=== PATIENT | female | born 2000 | race African-American/Black ===

== ENCOUNTER 2020-07-15 20:44 | Emergency (ER) | payer OTHER, SELFPAY ==
--- NOTE | ~2020-07-15 | CT_ITS ---
EXAMINATION: CT abdomen pelvis w con DATE: 07/15/2020 22:22 INDICATION: Left lower quadrant abdominal pain TECHNIQUE: Computed tomography (CT) of the abdomen and pelvis was performed with 100 mL Omnipaque-350 intravenous contrast. Automated exposure control and iterative reconstruction technique were employe d. The dose-length product was 248.79 mGy-cm. COMPARISON: 07/29/2019 FINDINGS: Lung bases are clear. Heart size is normal. No pericardial or pleural effusion. Liver, gallbladder, s pleen, pancreas, bilateral adrenal glands and kidneys are normal. Normal appendix. Bladder and anteve rted uterus are normal. Bilateral adnexa are unremarkable although assessment is somewhat limited by small amount of likely physiologic free fluid in the pelvis. No bowel obstruction. There appears to b e some wall thickening of the colon most prominent in the region of the splenic flexure and at the re ctum and distal sigmoid colon. No abscess or free intraperitoneal gas. No pathologically enlarged abd ominal or pelvic lymphadenopathy. Bones are unremarkable. IMPRESSION: 1. Mild colonic wall thickening at the splenic flexure of the colon and distal sigmoid colon and rect um suspicious for colitis which could be infectious, inflammatory or less likely ischemic in etiology . Reviewed, dictated and finalized at location A. STIGATIVE REPORTER IMPRESSION: 1. Mild colonic wall thickening at the splenic flexure of the colon and distal sigmoid colon and rectum suspicious for colitis which could be infectious, infl ammatory or less likely ischemic in etiology.
[2020-07-15 20:52] VITALS: BP 148/86; PULSE 103; RESP 15; TEMP 36.1; O2SAT 100
[2020-07-15 21:15] LABS: Basophils Percent Auto 0.2 % (0.2-1.2); Eosinophils Absolute Auto 0.1 K/mm3 (0-0.3); Eosinophils Percent Auto 1.3 % (0-4.4); Hematocrit 37.4 % (37.0-47.0); Hemoglobin 12.1 g/dL (12.0-15.0); Immature Granulocyte Absolute 0.02 K/mm3 (0.00-0.031); Immature Granulocyte Percent A 0.2 % (0-0.5); Lymphocytes Absolute Auto 1.97 K/mm3 (0.9-3.2); Lymphocytes Percent Auto 19.6 % (18.3-44.2); Mean Corpuscular HGB Conc 32.4 g/dl (32-36); Mean Corpuscular Hemoglobin 27.4 pg (26-34); Mean Corpuscular Volume 84.8 fl (80-100); Mean Platelet Volume 9.4 fl (7.4-10.4); Monocytes Absolute Auto 0.6 K/mm3 (0.1-0.6); Monocytes Percent Auto 6.2 % (2.6-8.5); Neutrophils Absolute Auto 7.3 K/mm3 (1.3-6.7); Neutrophils Percent Auto 72.5 % (45.5-73.1); Platelet Count Result 313 k/mm3 (150-375); Red Blood Count 4.41 M/mm3 (4.2-5.4); Red Cell Distribution Width 13.7 % (11.5-14.5); White Blood Count 10.1 K/mm3 (4.5-10.0)
[2020-07-15 21:20] LABS: Add Urine Microscopic? YES; Amorphous Sediment Urine Few; Appearance Urine Cloudy (Clear); Bilirubin Urine Negative (Negative); Blood Urine Negative (Negative); Color Urine Yellow (Yellow); Glucose Urine UA Negative (Negative); Ketones Urine Negative (Negative); Leukocyte Esterase Ur Negative LEU/UL (Negative); Mucus Urine Moderate /lpf; Nitrate Urine Negative (Negative); Protein Urine 1+ mg/dL (Negative); RBC Urine 0-2 /hpf (0-2); Specific Grav Ur 1.028 (1.001-1.035); Squamous Epithelial Cell Urine Few /hpf (Few); Urobilinogen Urine Negative mg/dL (<2.0); WBC Urine 0-3 /hpf
--- NOTE | 2020-07-15 21:23 | ED.ABDPAIN ---
HPI - Abdominal Pain General Chief Complaint: Abdominal Pain Stated Complaint: LLQ pain, headache Time Seen by Provider: 07/15/20 21:19 Source: patient History of Present Illness HPI narrative: Patient is a 19 y/o female complaining of sharp left lower abdominal pain starting 2 days ago. There is no pain radiation, no alleviating or exacerbating factor. She has some nausea, but no vomiting, diarrhea or dysuria. She also started to have bilateral frontal headache with light sensitivity today. Related Data Allergies Allergy/AdvReac Type Severity Reaction Status Date / Time Penicillins Allergy Unknown Unknown Verified 07/15/20 20:54 Review of Systems Constitutional: Constitutional: Denies chills, Denies fever(s), Reports headache(s) and Denies weakness Eyes: Eyes: Denies blurry vision ENT: Reports headache(s) and Denies neck pain Cardiovascular: Cardiovascular: Denies chest pain and Denies dyspnea Respiratory: Respiratory: Denies cough and Denies dyspnea Gastrointestinal: Gastrointestinal: Reports abdominal pain, Denies diarrhea, Reports nausea and Denies vomiting Genitourinary: Genitourinary: Denies hematuria and Denies dysuria Musculoskeletal: Musculoskeletal: Denies back pain and Denies neck pain Neurologic: Reports headache(s) and Denies weakness PMFSH Past Medical History Medical History (Updated 07/15/20 @ 22:59 by Nathaly Lea MD) Asthma Bronchitis Surgical History Surgical History [place] teeth removed Family History Family History Mother Diabetes mellitus Social History Social History Smoking status: Never smoker Second hand tobacco smoke exposure: No Alcohol intake: never Gender identity (if verbalized by the patient): Female Exam Const: General: no acute distress and well developed Orientation/consciousness: oriented to person, oriented to place, oriented to time and patient oriented x3 HENMT: Head: normocephalic Ears: external ears normal General nose exam: Normal external nose present Eyes: General: appearance normal, both eyes and all related structures Conjunctivae: conjunctivae normal Neck: Neck: normal visual inspection and full ROM Chest: Chest palpation & inspection: normal inspection of the chest and no tenderness Resp: Effort & Inspection: normal respiratory effort Auscultation: clear to auscultation bilaterally Cardio: Rate: regular rate Rhythm: regular rhythm GI: GI Palp: No abdominal tenderness and Yes Soft to palpation Skin: General skin exam: normal color and turgor normal Neuro: General: oriented to person, oriented to place, oriented to time and patient oriented x3 Cranial nerves: Yes CN's II-XII intact bilaterally Cognition (Neuro): normal cognition Speech: normal speech Motor exam (neuro): 5/5 motor strength present throughout Sensory Exam: normal sensation Coordination: [id number] test normal and [id number]-[id number] test normal Extrem: General: normal to inspection, full ROM and no pedal edema Psych: Appearance: grossly normal Mental Status: mental status grossly normal Affect: normal affect Course Reevaluation(s) Reevaluation #1: Rechecked. Patient feels better with no significant pain. Date: 07/15/20 Time: 22:50 Vital Signs Vital signs: Vital Signs Temperature 36.1 C L 07/15/20 20:52 Pulse Rate 103 H 07/15/20 20:52 Respiratory Rate 15 07/15/20 20:52 Blood Pressure 148/86 H 07/15/20 20:52 Pulse Oximetry 100 07/15/20 20:52 Temperature 36.1 C L 07/15/20 20:52 Pulse Rate 90 07/15/20 22:47 Respiratory Rate 18 07/15/20 22:47 Blood Pressure 118/82 07/15/20 22:47 Pulse Oximetry 100 07/15/20 22:47 MDM - Abdominal Pain Lab Data Result diagrams: 07/15/20 21:08 07/15/20 21:08 Labs: Lab Results 07/15/20 07/15/20
[2020-07-15 21:30] LABS: Alanine Aminotransferase 14 U/L (4-35); Albumin Level 4.9 g/dL (3.7-5.6); Alkaline Phosphatase 93 U/L (45-116); Anion Gap 10 mmol/L (8-16); Aspartate Amino Transferase 28 U/L (14-36); Bilirubin,Total 0.3 mg/dL (0.2-1.3); Blood Urea Nitrogen 10 mg/dL (8-21); Carbon Dioxide 27 mmol/L (22-30); Chloride 104 mmol/L (98-107); Estimated CRCL calculation 99 ml/min; Estimated Glomerular Filt Rate > 60; Glucose 99 mg/dL (65-105); Lipase 71 U/L (23-300); Potassium 3.3 mmol/L (3.4-5.0); Sodium 141 mmol/L (134-143)
[2020-07-15] MEDS: SODIUM CHLORIDE 0.9% IV 1,000 ML 999 ML IV CONT (21:50)
[2020-07-15] MEDS: KETOROLAC 30 MG/ML VIAL (*BKC) IV PUSH (21:51)
[2020-07-15] MEDS: METOCLOPRAMIDE HCL INJ 10 MG/2 ML VIAL IV PUSH (21:51)
[2020-07-15] MEDS: diphenhydrAMINE HCl INJ 50 MG/ML VIAL 25 MG IV PUSH (21:51)
[2020-07-15] MEDS: POTASSIUM CHLORIDE 20 MEQ TABLET PO (22:44)
[2020-07-15 22:47] VITALS: BP 118/82; PULSE 90; RESP 18; O2SAT 100
[2020-07-15 23:15] VITALS: BP 122/80; PULSE 87; RESP 18; O2SAT 100
== END 2020-07-15 23:30 | disposition home or self-care (01) ==
PROVIDERS: Emergency Medicine; Emergency Provider Emergency Medicine; PCP Pediatrics
DX: R51.9 Headache, unspecified (principal); J45.909 Unspecified asthma, uncomplicated
CPT/HCPCS: 36415; 74177; 80053; 81001; 81025; 83690; 85025; 96361; 96374; 96375; 99284; A9270; J1200; J1885; J2765; J7030; Q9967

== ENCOUNTER 2021-03-22 17:00 | Emergency (ER) | payer OTHER, SELFPAY ==
[2021-03-22 17:43] VITALS: BP 127/81; PULSE 96; RESP 15; TEMP 36.3; O2SAT 100
[2021-03-22 18:00] LABS: Basophils Percent Auto 0.2 % (0.2-1.2); Eosinophils Percent Auto 0.5 % (0-4.4); Hematocrit 37.5 % (37.0-47.0); Lymphocytes Absolute Auto 0.81 K/mm3 (0.9-3.2); Lymphocytes Percent Auto 18.3 % (18.3-44.2); Mean Corpuscular Hemoglobin 26.9 pg (26-34); Mean Corpuscular Volume 84.1 fl (80-100); Mean Platelet Volume 10.1 fl (7.4-10.4); Monocytes Absolute Auto 0.6 K/mm3 (0.1-0.6); Monocytes Percent Auto 12.7 % (2.6-8.5); Neutrophils Percent Auto 68.3 % (45.5-73.1); Platelet Count Result 294 k/mm3 (150-375); Red Blood Count 4.46 M/mm3 (4.2-5.4); Red Cell Distribution Width 13.5 % (11.5-14.5); White Blood Count 4.4 K/mm3 (4.5-10.0)
[2021-03-22 18:10] LABS: Alanine Aminotransferase 14 U/L (4-35); Albumin Level 4.5 g/dL (3.5-5.1); Alkaline Phosphatase 82 U/L (38-126); Anion Gap 9 mmol/L (8-16); Aspartate Amino Transferase 25 U/L (14-36); Bilirubin,Total 0.4 mg/dL (0.2-1.3); Blood Urea Nitrogen 7 mg/dL (7-17); Calcium 9.2 mg/dL (8.4-10.2); Carbon Dioxide 24 mmol/L (22-30); Chloride 101 mmol/L (98-107); Estimated CRCL calculation 111 ml/min; Estimated Glomerular Filt Rate > 60; Glucose 106 mg/dL (65-110); Lipase 78 U/L (23-300); Potassium 3.1 mmol/L (3.4-5.0); Sodium 134 mmol/L (137-145)
[2021-03-22 18:11] LABS: Add Urine Microscopic? YES; Appearance Urine Cloudy (Clear); Bilirubin Urine 1+ (Negative); Blood Urine Negative (Negative); Color Urine Amber (Yellow); Glucose Urine UA Negative (Negative); Ketones Urine 2+ mg/dL (Negative); Leukocyte Esterase Ur Negative LEU/UL (Negative); Mucus Urine Heavy /lpf; Nitrate Urine Negative (Negative); Protein Urine 2+ mg/dL (Negative); RBC Urine 0-2 /hpf (0-2); Squamous Epithelial Cell Urine Many /hpf (Few); WBC Urine 0-3 /hpf
[2021-03-22 18:26] LABS: Specific Grav Ur 1.049 (1.001-1.035)
[2021-03-22 19:23] VITALS: BP 121/84; PULSE 84; RESP 18; O2SAT 100
--- NOTE | 2021-03-22 19:37 | ED.GENADULT ---
HPI - General Adult General Chief complaint: Nausea/Vomiting/Diarrhea Stated complaint: N/V/D Time Seen by Provider: 03/22/21 19:17 Source: patient Mode of arrival: ambulatory Limitations: no limitations History of Present Illness HPI narrative: Patient is 20 years old -Congolese female referred to the emergency room by urgent care because of abnormal urine test. Patient complaining of headache started 2 days ago, today felt nauseated, vomited once and had large bowel movement of watery diarrhea. Patient denies any fever, chills, sneezing, coughing, sore throat, respiratory symptoms, exposure to anybody known having COVID-19. 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 EYES: Denies visual changes, redness, or discharge. ENT: Denies rhinorrhea, congestion, sore throat, or otalgia. CARDIOVASCULAR: Denies chest pain, palpitations, or edema. RESPIRATORY: Denies cough or dyspnea. GASTROINTESTINAL: Denies abdominal pain, nausea, vomiting, or diarrhea. GENITOURINARY: Denies dysuria or hematuria. SKIN: Denies rash or itching. MUSCULOSKELETAL: Denies back pain, joint pain, or myalgia. NEUROLOGIC: Slight frontal headache PSYCHIATRIC: Denies anxiety or depression. PMFSH Past Medical History Medical History (Updated 03/22/21 @ 19:46 by George Bay MD) Asthma Bronchitis Surgical History Surgical History [place] teeth removed Family History Family History Mother Diabetes mellitus Social History Social History Smoking status: Never smoker Second hand tobacco smoke exposure: No Alcohol intake: never Gender identity (if verbalized by the patient): Female Exam Narrative: General appearance: Well-developed, well-nourished Skin: Normal color Head: Normocephalic, nontraumatic Eyes: Clear conjunctiva ENT: Oropharynx normal, ears normal, nose normal Neck: Supple, nontender Chest and respiratory: Airway patent, no respiratory distress, no accessory muscle use Heart: Regular rate/rhythm Abdomen: Soft, nontender, no organomegaly, quiet bowel sounds Vascular: Normal peripheral pulses, normal capillary refill. Musculoskeletal: Normal range of motion, nontender back Neurologic: Alert and oriented ?3, LITERACY COORDINATOR is normal as tested, no gross motor deficit Course Course Emergency Course: Stable, improving Vital Signs Vital signs: Vital Signs Temperature 36.3 C L 03/22/21 17:43 Pulse Rate 96 03/22/21 17:43 Respiratory Rate 15 03/22/21 17:43 Blood Pressure 127/81 03/22/21 17:43 Pulse Oximetry 100 03/22/21 17:43 Temperature 36.3 C L 03/22/21 17:43 Pulse Rate 84 03/22/21 19:23 Respiratory Rate 18 03/22/21 19:23 Blood Pressure 121/84 03/22/21 19:23 Pulse Oximetry 100 03/22/21 19:23 Medical Decision Making [facility] Narrative Medical decision making narrative: Viral gastroenteritis is my concern. Rule out Covid, Rule out electrolyte imbalance. Labs, IV fluid, IV Toradol ordered. Further plan to follow Differential Diagnosis Differential Diagnosis: Viral infection, gastroenteritis, electrolyte imbalance Vital Signs Vital Signs: Vital Signs Temperature 36.3 C L 03/22/21 17:43 Pulse Rate 96 03/22/21 17:43 Respiratory Rate 15 03/22/21 17:43 Blood Pressure 127/81 03/22/21 17:43 Pulse Oximetry 100
[2021-03-22] MEDS: POTASSIUM CHLORIDE 20 MEQ PACKET (FOR LIQUID) 40 MEQ PO (19:39)
[2021-03-22 20:00] VITALS: BP 129/86; PULSE 88; RESP 14; O2SAT 100
[2021-03-22] MEDS: KETOROLAC 30 MG/ML VIAL (*BKC) IV PUSH (20:02)
[2021-03-22] MEDS: SODIUM CHLORIDE 0.9% IV 1,000 ML 999 ML IV CONT (20:02)
[2021-03-22 21:00] VITALS: BP 104/69; PULSE 81; RESP 14; O2SAT 100
[2021-03-22 22:00] VITALS: BP 111/73; PULSE 91; RESP 14; O2SAT 100
[2021-03-23 17:38] LABS: SARS-CoV-2 RNA PCR Negative
== END 2021-03-22 22:00 | disposition home or self-care (01) ==
LOC: ANHED 19:56
PROVIDERS: Emergency Medicine; Emergency Provider Emergency Medicine
DX: J45.909 Unspecified asthma, uncomplicated (principal); A08.4 Viral intestinal infection, unspecified; R82.2 Biliuria; E87.6 Hypokalemia; R80.9 Proteinuria, unspecified; Z20.822 Contact with and (suspected) exposure to COVID-19
CPT/HCPCS: 36415; 80053; 81001; 83690; 85025; 96361; 96374; 99284; A9270; C9803; J1885; J7030; U0003; U0005

== ENCOUNTER 2022-04-13 16:35 | Emergency (ER) | payer OTHER, SELFPAY ==
[2022-04-13 16:40] VITALS: BP 148/82; PULSE 100; RESP 20; TEMP 36.4; O2SAT 100
[2022-04-13 17:07] LABS: Basophils Percent Auto 0.3 % (0.2-1.2); Eosinophils Absolute Auto 0.2 K/mm3 (0-0.3); Eosinophils Percent Auto 3.2 % (0-4.4); Hematocrit 35.5 % (37.0-47.0); Hemoglobin 11.8 g/dL (12.0-15.0); Immature Granulocyte Absolute 0.02 K/mm3 (0.00-0.031); Immature Granulocyte Percent A 0.3 % (0-0.5); Lymphocytes Absolute Auto 2.43 K/mm3 (0.9-3.2); Lymphocytes Percent Auto 32.5 % (18.3-44.2); Mean Corpuscular HGB Conc 33.2 g/dl (32-36); Mean Corpuscular Hemoglobin 27.8 pg (26-34); Mean Corpuscular Volume 83.7 fl (80-100); Mean Platelet Volume 9.6 fl (7.4-10.4); Monocytes Absolute Auto 0.7 K/mm3 (0.1-0.6); Monocytes Percent Auto 8.7 % (2.6-8.5); Neutrophils Absolute Auto 4.1 K/mm3 (1.3-6.7); Platelet Count Result 316 k/mm3 (150-375); Red Blood Count 4.24 M/mm3 (4.2-5.4); White Blood Count 7.5 K/mm3 (4.5-10.0)
[2022-04-13 17:12] LABS: Appearance Urine Clear (Clear); Bilirubin Urine Negative (Negative); Blood Urine Negative (Negative); Color Urine Yellow (Yellow); Glucose Urine UA Negative (Negative); Ketones Urine Trace mg/dL (Negative); Leukocyte Esterase Ur Negative LEU/UL (Negative); Nitrate Urine Negative (Negative); Protein Urine Trace mg/dL (Negative); Urobilinogen Urine 0.2 mg/dL (<2.0); pH Urine 8.5 (5.0-9.0)
[2022-04-13 17:16] LABS: Alanine Aminotransferase 10 U/L (6-35); Albumin Level 4.9 g/dL (3.5-5.1); Alkaline Phosphatase 70 U/L (38-126); Anion Gap 5 mmol/L (8-16); Aspartate Amino Transferase 25 U/L (14-36); Bilirubin,Total 0.2 mg/dL (0.2-1.3); Blood Urea Nitrogen 5 mg/dL (7-17); Calcium 9.6 mg/dL (8.4-10.2); Carbon Dioxide 23 mmol/L (22-30); Chloride 103 mmol/L (98-107); Estimated CRCL calculation 127 ml/min; Estimated Glomerular Filt Rate > 60; Glucose 97 mg/dL (65-110); Lipase 105 U/L (23-300); Potassium 3.8 mmol/L (3.4-5.0); Sodium 131 mmol/L (137-145)
[2022-04-13 17:18] LABS: Mucus Urine Heavy /lpf; Squamous Epithelial Cell Urine Many /hpf (Few)
[2022-04-13 17:25] LABS: Add Urine Microscopic? YES
[2022-04-13] MEDS: SODIUM CHLORIDE 0.9% IV 1,000 ML 999 ML IV CONT (18:10)
--- NOTE | 2022-04-13 18:12 | ED.NAVMDI ---
HPI - Nausea/Vomiting/Diarrhea General Chief complaint: Nausea/Vomiting/Diarrhea Stated complaint: N/V/D Time Seen by Provider: 04/13/22 17:55 Source: patient Mode of arrival: ambulatory Limitations: no limitations History of Present Illness HPI Narrative: Patient is a 21-year-old female who presents the ED with report of N/V/D. Patient reports she began to feel somewhat well last night, but then developed nausea, vomiting, diarrhea today. She is currently 9 weeks , G1, P0, and became concerned due to the that she was unable to keep down any food or fluid. She reports having 4 episodes of emesis and numerous episodes of diarrhea. No rectal bleeding. Abdominal cramping abdominal pain, no localized or lower abdominal pain. No hematemesis. No fever, cough, cold symptoms, recent sick contacts or bad food exposure, dysuria, hematuria, vaginal bleeding. Patient has had an ultrasound within the last month, confirming IUP. She sees an CODING SUPPORT SPECIALIST in [place]. Next appointment and [place] mid-April. Related Data Allergies Allergy/AdvReac Type Severity Reaction Status Date / Time Penicillins Allergy Unknown Unknown Verified 03/22/21 19:24 peanut Allergy Unknown Verified 03/22/21 19:24 Review of Systems Review of Systems: CONSTITUTIONAL: Denies fever, chills, or sweats. ENT: Denies rhinorrhea, congestion, sore throat. CARDIOVASCULAR: Denies chest pain. RESPIRATORY: Denies cough or dyspnea. GASTROINTESTINAL: Reports dull cramping abdominal pain, nausea, vomiting, and diarrhea. Denies focal abdominal pain, constipation, rectal bleeding. GENITOURINARY: Denies dysuria or hematuria. All systems reviewed & are unremarkable except as noted in HPI and below PMFSH Past Medical History Medical History (Updated 04/13/22 @ 20:11 by Laisha Gross PA-C) Asthma Bronchitis Surgical History Surgical History [place] teeth removed Family History Family History Mother Diabetes mellitus Social History Social History Smoking status: Never smoker Second hand tobacco smoke exposure: No Alcohol intake: never Gender identity (if verbalized by the patient): Female Exam Narrative: GENERAL: Well appearing, well-nourished, non-toxic, in no acute distress. HEAD: Normocephalic, atraumatic. THROAT: Pharynx clear, no exudate. MMs slightly dry. NECK: Supple. No adenopathy, no masses. RESPIRATORY: Airway patent, respirations nonlabored. Clear to auscultation bilaterally, no rales, rhonchi, wheezing. CARDIOVASCULAR: Regular rate and rhythm without murmurs, rubs, or gallops. Radial and pedal pulses 2+ and equal bilaterally. ABDOMINAL: Soft, minimal tenderness palpation epigastric region, no tenderness in lower abdomen. Unable to definitively palpate gravid uterus. Nondistended, no hepatosplenomegaly. Normoactive BS. MUSCULOSKELETAL: Moves all extremities. Strength/ROM intact without gross deformities. No edema. SKIN: Warm, dry, normal color. No rashes. NEURO: A&O X3. Speech clear. Cranial nerves II-XII grossly intact. Steady gait. No ataxic movements. PSYCHIATRIC: Appropriate mood and affect. Normal interaction. Course Vital Signs Vital signs: Vital Signs Temperature 97.6 F 04/13/22 16:40 Pulse Rate 100 04/13/22 16:40 Respiratory Rate 20 04/13/22 16:40 Blood Pressure 148/82 H 04/13/22 16:40 Pulse Oximetry 100 04/13/22 16:40 Oxygen Delivery Room Air 04/13/22 16:40 Temperature 97.6 F 04/13/22 16:40 Pulse Rate 87 04/13/22 20:28 Respiratory Rate 18 04/13/22 20:28 Blood Pressure 129/77 04/13/22 20:28 Pulse Oximetry 97 04/13/22 20:28 Oxygen Delivery Room Air 04/13/22 16:40 MDM - Nausea/Vomiting/Diarrhea MDM Narrative Medical decision making narrative: Patient presented to ED with several hour history of
[2022-04-13 18:19] VITALS: BP 116/73; BP 118/71; PULSE 80; PULSE 82
[2022-04-13 18:20] VITALS: BP 129/86; PULSE 73
[2022-04-13] MEDS: ONDANSETRON INJ 4 MG/2 ML VIAL IV PUSH (18:25)
[2022-04-13 18:44] VITALS: BP 106/67; PULSE 69; RESP 16; O2SAT 100
[2022-04-13 19:55] VITALS: BP 102/68; PULSE 76; RESP 18; O2SAT 100
[2022-04-13 20:28] VITALS: BP 129/77; PULSE 87; RESP 18; O2SAT 97
== END 2022-04-13 20:26 | disposition home or self-care (01) ==
PROVIDERS: Emergency Medicine; Emergency Provider Emergency Medicine
DX: O21.9 Vomiting of pregnancy, unspecified (principal); O26.891 Other specified pregnancy related conditions, first trimester; R82.71 Bacteriuria; Z3A.09 9 weeks gestation of pregnancy
CPT/HCPCS: 36415; 80053; 81001; 81025; 83690; 85025; 87086; 96361; 96374; 99284; J2405; J7030

== ENCOUNTER 2023-11-05 21:53 | Emergency (ER) | payer OTHER, SELFPAY ==
[2023-11-05 21:55] VITALS: BP 130/84; PULSE 97; RESP 16; TEMP 36.1; O2SAT 100
[2023-11-05 22:48] LABS: Basophils Percent Auto 0.4 % (0.2-1.2); Eosinophils Absolute Auto 0.3 K/mm3 (0-0.3); Eosinophils Percent Auto 3.8 % (0-4.4); Hemoglobin 11.1 g/dL (12.0-15.0); Immature Granulocyte Absolute 0.01 K/mm3 (0.00-0.031); Immature Granulocyte Percent A 0.1 % (0-0.5); Lymphocytes Percent Auto 39.4 % (18.3-44.2); Mean Corpuscular HGB Conc 32.6 g/dl (32-36); Mean Corpuscular Hemoglobin 27.7 pg (26-34); Mean Corpuscular Volume 84.8 fl (80-100); Mean Platelet Volume 9.7 fl (7.4-10.4); Monocytes Absolute Auto 0.7 K/mm3 (0.1-0.6); Monocytes Percent Auto 8.4 % (2.6-8.5); Neutrophils Absolute Auto 3.8 K/mm3 (1.3-6.7); Neutrophils Percent Auto 47.9 % (45.5-73.1); Platelet Count Result 301 k/mm3 (150-375); Red Blood Count 4.01 M/mm3 (4.2-5.4); Red Cell Distribution Width 13.8 % (11.5-14.5); White Blood Count 7.9 K/mm3 (4.5-10.0)
[2023-11-05 22:59] LABS: Alanine Aminotransferase 11 U/L (6-35); Albumin Level 4.1 g/dL (3.5-5.1); Alkaline Phosphatase 100 U/L (38-126); Anion Gap 7 mmol/L (8-16); Aspartate Amino Transferase 21 U/L (14-36); Bilirubin,Total 0.2 mg/dL (0.2-1.3); Blood Urea Nitrogen 10 mg/dL (7-17); Calcium 9.3 mg/dL (8.4-10.2); Carbon Dioxide 20 mmol/L (22-30); Chloride 107 mmol/L (98-107); Estimated CRCL calculation 126 ml/min; Estimated Glomerular Filt Rate > 60; Glucose 116 mg/dL (65-110); Potassium 3.6 mmol/L (3.4-5.0); Sodium 134 mmol/L (137-145)
--- NOTE | 2023-11-05 23:07 | PC.NURSE ---
Report received from JAMES Alves. Assumed care of patient at this time.
--- NOTE | 2023-11-05 23:10 | ED.FEMALEGU ---
HPI - Female Genitourinary General Chief complaint: Vaginal Bleeding Stated complaint: /VAGINAL SPOTTING Time Seen by Provider: 11/05/23 22:01 History of Present Illness HPI Narrative: Patient is a 22-year-old female who presents to the emergency department this evening complaining of vaginal spotting. Patient states that she is approximately 9 weeks and this is her 2nd . Patient has seen her OBGYN during this already and has had an ultrasound confirming intrauterine . Patient denies any bleeding or spotting thus far in her . She is currently denying any abdominal pain or cramping and denies any urinary symptoms including dysuria or hematuria. Patient states that she has an upcoming appointment with her OBGYN in 4 days on the . She is currently denying any additional symptoms at this time. There are no other modifying, alleviating, or precipitating factors. Related Data Home Medications Medication Instructions Recorded Confirmed No Home Medications 11/05/23 Allergies Allergy/AdvReac Type Severity Reaction Status Date / Time Penicillins Allergy Unknown Unknown Verified 11/05/23 21:57 peanut Allergy Unknown Verified 11/05/23 21:57 Review of Systems Review of Systems: All systems are reviewed and are negative unless stated otherwise in the HPI. [facility] Past Medical History Medical History (Updated 11/05/23 @ 23:15 by Chinedu Berry MD) Asthma Bronchitis Surgical History Surgical History [place] teeth removed Family History Family History Mother Diabetes mellitus Social History Social History Smoking status: Never smoker Second hand tobacco smoke exposure: No Alcohol intake: never Gender identity (if verbalized by the patient): Female Exam Narrative: General: Alert, awake, afebrile, in no acute distress. HEENT: PERRL, no rhinorrhea, no post nasal drip, oropharynx clear. Neck: Trachea midline, no JVD, no lymphadenopathy. Cardiovascular: Regular rate and rhythm, no murmurs, rubs or gallops, no peripheral edema. Respiratory: Clear to auscultation bilaterally, no tachypnea, no wheezing, no rhonchi, no rubs, no respiratory distress. Abdomen: Soft, nontender, nondistended, no rebound, no guarding, no peritoneal signs. Musculoskeletal: No joint swelling or deformity, normal muscle tone. Skin: No rashes or petechia, no signs of infection. Psychiatric: Alert and oriented, normal behavior and judgment for situation. Neurological: Alert and oriented to person, place, and time. Follows all commands. No focal deficits, speech is clear and fluent. Course Vital Signs Vital signs: Vital Signs Temperature 97.0 F L 11/05/23 21:55 Pulse Rate 97 11/05/23 21:55 Respiratory Rate 16 11/05/23 21:55 Blood Pressure 130/84 11/05/23 21:55 Pulse Oximetry 100 11/05/23 21:55 Oxygen Delivery Room Air 11/05/23 21:55 Temperature 97.0 F L 11/05/23 21:55 Pulse Rate 88 11/06/23 00:58 Respiratory Rate 17 11/06/23 00:58 Blood Pressure 130/84 11/05/23 21:55 Pulse Oximetry 99 11/06/23 00:58 Oxygen Delivery Room Air 11/05/23 21:55 MDM - Female Genitourinary MDM Narrative Medical decision making narrative: The patient was evaluated by myself in the emergency department. History is obtained from patient who is an independent historian and physical exam was performed. External medical records were reviewed at this time. IV was established and pertinent tests were ordered. Laboratory results obtained revealing a beta-hCG of 94,710. The remainder of the blood work revealed no acute process. Patient is Rh positive. Differential diagnosis considerations include normal 1st trimester spotting versus threatened miscarriage. Comorbidities impacting
[2023-11-06 00:58] VITALS: PULSE 88; RESP 17; O2SAT 99
[2023-11-06 01:11] LABS: Bacteria Urine None Seen /hpf; Non Pathogenic Casts 0-2; RBC Urine 0-2 /hpf (0-2); Squamous Epithelial Cell Urine None Seen /hpf (Few); WBC Urine 0-5 /hpf (0-3)
[2023-11-06 01:13] LABS: Add Urine Microscopic? YES; Color Urine Yellow (Yellow)
[2023-11-06 01:14] LABS: Appearance Urine Clear (Clear); Bilirubin Urine Negative (Negative); Blood Urine Trace-Lysed (Negative); Glucose Urine UA Negative (Negative); Ketones Urine Trace mg/dL (Negative); Leukocyte Esterase Ur Negative LEU/UL (Negative); Nitrate Urine Negative (Negative); Protein Urine Negative (Negative); Specific Grav Ur 1.025 (1.001-1.035)
== END 2023-11-06 01:50 | disposition home or self-care (01) ==
PROVIDERS: Emergency Provider Emergency Medicine
DX: O20.0 Threatened abortion (principal); O99.511 Diseases of the respiratory system complicating pregnancy, first trimester; J45.909 Unspecified asthma, uncomplicated; Z3A.09 9 weeks gestation of pregnancy
CPT/HCPCS: 36415; 80053; 81001; 84702; 85025; 85461; 86850; 86900; 86901; 99283

== ENCOUNTER 2024-06-04 03:26 | Emergency (ER) | payer OTHER, SELFPAY ==
[2024-06-04] VITALS (18 sets, daily range): BP systolic 126–172; BP diastolic 82–124; PULSE 61–112; RESP 14–23; TEMP 36.4–36.7; O2SAT 98–100
--- NOTE | ~2024-06-04 | XR_ITS ---
EXAMINATION: XR chest 1V portable DATE: 06/04/2024 04:34 INDICATION: Shortness of breath. TECHNIQUE: A single frontal view of the chest was obtained. COMPARISON: Chest 2 views 07/29/2019, CT abdomen and pelvis 07/15/2020 FINDINGS: There is no pneumonia, pleural effusion, or pneumothorax. The heart size is normal. IMPRESSION: 1. No acute cardiopulmonary disease. Reviewed, dictated and finalized at location A.
--- NOTE | 2024-06-04 03:35 | PC.NURSE ---
unable to place pt in gown as she is currently breast feeding the baby.
[2024-06-04] MEDS: SODIUM CHLORIDE 0.9% IV 1,000 ML 999 ML IV CONT (03:38)
[2024-06-04 03:51] LABS: Basophils Percent Auto 0.3 % (0.2-1.2); Eosinophils Absolute Auto 0.2 K/mm3 (0-0.3); Eosinophils Percent Auto 2.3 % (0-4.4); Hematocrit 33.4 % (37.0-47.0); Hemoglobin 10.5 g/dL (12.0-15.0); Immature Granulocyte Absolute 0.02 K/mm3 (0.00-0.031); Immature Granulocyte Percent A 0.3 % (0-0.5); Lymphocytes Absolute Auto 3.74 K/mm3 (0.9-3.2); Lymphocytes Percent Auto 51.3 % (18.3-44.2); Mean Corpuscular HGB Conc 31.4 g/dl (32-36); Mean Corpuscular Hemoglobin 26.9 pg (26-34); Mean Corpuscular Volume 85.4 fl (80-100); Mean Platelet Volume 9.6 fl (7.4-10.4); Monocytes Absolute Auto 0.6 K/mm3 (0.1-0.6); Monocytes Percent Auto 8.1 % (2.6-8.5); Neutrophils Absolute Auto 2.8 K/mm3 (1.3-6.7); Neutrophils Percent Auto 37.7 % (45.5-73.1); Platelet Count Result 321 k/mm3 (150-375); Red Blood Count 3.91 M/mm3 (4.2-5.4); Red Cell Distribution Width 14.6 % (11.5-14.5); White Blood Count 7.3 K/mm3 (4.5-10.0)
[2024-06-04 04:01] LABS: Alanine Aminotransferase 17 U/L (6-35); Alkaline Phosphatase 145 U/L (38-126); Anion Gap 9 mmol/L (4-12); Aspartate Amino Transferase 24 U/L (14-36); Bilirubin,Total 0.3 mg/dL (0.2-1.3); Blood Urea Nitrogen 11 mg/dL (7-17); Calcium 8.7 mg/dL (8.4-10.2); Carbon Dioxide 22 mmol/L (22-30); Chloride 107 mmol/L (98-107); Estimated CRCL calculation 111 ml/min; Estimated Glomerular Filt Rate > 60; Glucose 76 mg/dL (65-110); Lipase 91 U/L (23-300); Magnesium 2.1 mg/dL (1.6-2.3); Potassium 3.7 mmol/L (3.4-5.0); Sodium 138 mmol/L (137-145)
[2024-06-04 04:05] LABS: Uric Acid 5.3 mg/dL (2.5-7.5)
--- NOTE | 2024-06-04 04:06 | ECG_ITS ---
Test Date: 2024-06-04 04:34:00 Measurements Intervals [place] Rate: 68 P: 43 LA: 139 QRS: 17 QRSD: 123 T: 9 QT: 418 QTc: 446 Interpretive Statements SINUS RHYTHM INCOMPLETE RIGHT BUNDLE BRANCH BLOCK No previous ECG available for comparison Electronically Signed On 06-04-2024 09:42:54 CDT by Monica Fox M.D.
[2024-06-04 04:12] LABS: SPREG INTERNAL CONTROL Positive; Serum Qual hCG Positive
[2024-06-04 04:17] LABS: Lactate Dehydrogenase 248 U/L (120-246)
--- NOTE | 2024-06-04 04:25 | ED.ABDPAIN ---
HPI - Abdominal Pain General Chief Complaint: Abdominal Pain Stated Complaint: r sided flank pain, high bp, headaches Time Seen by Provider: 06/04/24 03:32 History of Present Illness HPI narrative: Patient is a 23-year-old female who presents to the emergency department this morning with an elevated blood pressure, headaches and feeling like it is difficult for her to take a deep breath. Patient had an uncomplicated vaginal delivery 5 days ago on May 30 at [facility]. Patient states that there were a few times during her were her blood pressure was elevated but she was never placed on antihypertensives and states that she was never diagnosed with preeclampsia/eclampsia. Patient denies any significant past medical history. Admits to seeing floaters in her field of vision intermittently, and states that she feels as though she can not fully expand her lungs she takes a deep breath. She admits to nausea but denies any vomiting episodes and denies any abdominal pain. Patient also denies any dysuria or hematuria. Denies any fevers or chills. No additional symptoms or concerns at this time. Related Data Home Medications Medication Instructions Recorded Confirmed No Home Medications 11/05/23 Allergies Allergy/AdvReac Type Severity Reaction Status Date / Time Penicillins Allergy Unknown Unknown Verified 06/04/24 03:27 peanut Allergy Unknown Verified 06/04/24 03:27 Review of Systems Review of Systems: All systems are reviewed and are negative unless stated otherwise in the HPI. [facility] Past Medical History Medical History (Updated 06/04/24 @ 05:38 by Chinedu Berry MD) Asthma Bronchitis Surgical History Surgical History [place] teeth removed Family History Family History Mother Diabetes mellitus Social History Social History Smoking status: Never smoker Second hand tobacco smoke exposure: No Alcohol intake: never Gender identity (if verbalized by the patient): Female Exam Narrative: General: Alert, awake, afebrile, in no acute distress. HEENT: PERRL, no rhinorrhea, no post nasal drip, oropharynx clear. Cardiovascular: Regular rate and rhythm, no murmurs, rubs or gallops, no peripheral edema. Respiratory: Clear to auscultation bilaterally, no tachypnea, no wheezing, no rhonchi, no rubs, no respiratory distress. Abdomen: Soft, nontender, nondistended, no rebound, no guarding, no peritoneal signs. Musculoskeletal: No joint swelling or deformity, normal muscle tone. Skin: No rashes or petechia, no signs of infection. Neurological: Alert and oriented to person, place, and time. Follows all commands. No focal deficits, speech is clear and fluent. Course Vital Signs Vital signs: Vital Signs Temperature 98.1 F 06/04/24 03:29 Pulse Rate 80 06/04/24 03:29 Respiratory Rate 23 H 06/04/24 03:29 Blood Pressure 162/124 H 06/04/24 03:29 Pulse Oximetry 100 06/04/24 03:29 Oxygen Delivery Room Air 06/04/24 03:29 Temperature 98.1 F 06/04/24 03:29 Pulse Rate 112 H 06/04/24 05:45 Respiratory Rate 18 06/04/24 05:45 Blood Pressure 155/115 H 06/04/24 04:16 Pulse Oximetry 99 06/04/24 05:45 Oxygen Delivery Room Air 06/04/24 03:29 MDM - Abdominal Pain MDM Narrative Medical decision making narrative: The patient was evaluated by myself in the emergency department. History is obtained from patient who is an independent historian and physical exam was performed. External medical records were reviewed at this time. IV was established and pertinent tests were ordered. Patient was administered 4 g of IV magnesium and 10 mg of IV hydralazine at this time due to concern for preeclampsia with severe features. Patient has had 6 blood pressure readings 15 minutes apart with systolic blood press
[2024-06-04] MEDS: hydrALAZINE HCL 20 MG/ML VIAL 10 MG IV PUSH ×2 (04:28→05:31)
[2024-06-04] MEDS: MAGNESIUM SULF 4 GM/WATER100ML 4 GM/100 ML BAG IVPB (04:40)
--- NOTE | 2024-06-04 04:42 | PC.NURSE ---
Addendum entered by Elizabeth Osorio RN 06/04/24 04:43: Magnesium Original Note: RN double check with JAMES Guevara
--- NOTE | 2024-06-04 05:14 | PC.NURSE ---
Ok per Dr Berry to run the [employer] over 20 min.
--- NOTE | 2024-06-04 05:18 | PC.NURSE ---
Leyda RN start LR @ 75ml / hr Dr Mcrae accepting [place] [address], [facility] Room 533
[2024-06-04 05:24] LABS: Add Urine Microscopic? YES; Appearance Urine Clear (Clear); Bacteria Urine None Seen /hpf; Bilirubin Urine Negative (Negative); Blood Urine 1+ (Negative); Color Urine Yellow (Yellow); Glucose Urine UA Negative (Negative); Ketones Urine Negative (Negative); Leukocyte Esterase Ur 2+ LEU/UL (Negative); Need Manual Microscopic Reviewed; Nitrate Urine Negative (Negative); Non Pathogenic Casts 0-2; Protein Urine Negative (Negative); RBC Urine 0-2 /hpf (0-2); Specific Grav Ur 1.011 (1.001-1.035); Squamous Epithelial Cell Urine None Seen /hpf (Few); Urobilinogen Urine 0.2 mg/dL (<2.0); WBC Urine 0-5 /hpf (0-3); pH Urine 6.5 (5.0-9.0)
[2024-06-04] MEDS: LACTATED RINGERS 1,000 ML 75 ML IV CONT (05:49)
[2024-06-04] MEDS: MAGNESIUM SULF 2 GM/WATER 50ML 2 GM/50 ML BAG IVPB (05:49)
--- NOTE | 2024-06-04 06:26 | PC.NURSE ---
[facility] arrived with aSpphire hernandez to transport pt. [facility]apphire hernandez stopped our LR and Mag and started their own LR and mag.
== END 2024-06-04 06:29 | disposition short-term general hospital (02) ==
PROVIDERS: Emergency Provider Emergency Medicine
DX: O14.15 Severe pre-eclampsia, complicating the puerperium (principal); O99.53 Diseases of the respiratory system complicating the puerperium; J45.909 Unspecified asthma, uncomplicated; O99.43 Diseases of the circulatory system complicating the puerperium; I45.10 Unspecified right bundle-branch block
CPT/HCPCS: 36415; 71045; 80053; 81001; 83615; 83690; 83735; 84550; 84703; 85025; 87077; 87086; 87186; 93005; 96361; 96365; 96367; 96375; 99285; J0360; J3475; J7030; J7120

== ENCOUNTER 2024-07-05 13:57 | Emergency (ER) | payer OTHER, SELFPAY ==
--- NOTE | ~2024-07-05 | US_ITS ---
EXAMINATION: US venous doppler LE RT DATE: 07/05/2024 15:57 INDICATION: Right lower limb pain TECHNIQUE: Grayscale ultrasound images without and with compression and Doppler ultrasound images of the right lower extremity veins were obtained. COMPARISON: None. FINDINGS: The visualized portions of right common femoral vein, profunda (deep) femoral vein, femoral vein, pop liteal vein, peroneal trunk, posterior tibial veins, peroneal veins, gastrocnemius vein and greater s aphenous vein outflow are patent. IMPRESSION: 1. No deep venous thrombosis in the right lower limb. Reviewed, dictated and finalized at location B. OLE BUILDER
[2024-07-05 14:03] VITALS: BP 121/78; PULSE 78; RESP 18; TEMP 36.4; O2SAT 100
--- NOTE | 2024-07-05 17:01 | ED.EXTPRO ---
HPI - Extremity Problem General Chief complaint: Extremity Problem,Nontraumatic Stated complaint: R THIGH PAIN, SENT IN TO CHECK FOR BLOOD CLOT History of Present Illness HPI Narrative: Patient is a 23 year female who presents to the ER with concerns that her right thigh is more swollen than her left thigh. She denies pain, infection, redness. Patient reports she had a baby 1 month. She reports her OBGYN put her on blood pressure medication because she had preeclampsia. Patient was wondering if this is a side effect of that medication. Her OBGYN advised her to, to rule out a deep vein thrombosis in her right thigh. She denies any chest pain, shortness a breath, recent fevers. Related Data Home Medications Medication Instructions Recorded Confirmed No Home Medications 11/05/23 Allergies Allergy/AdvReac Type Severity Reaction Status Date / Time Penicillins Allergy Unknown Unknown Verified 06/04/24 03:27 peanut Allergy Unknown Verified 06/04/24 03:27 Review of Systems Review of Systems: All systems reviewed & are unremarkable except as noted in HPI and below PMFSH Past Medical History Medical History (Updated 07/05/24 @ 17:29 by Izabel Garrett APRN) Asthma Bronchitis Surgical History Surgical History [place] teeth removed Family History Family History Mother Diabetes mellitus Social History Social History Smoking status: Never smoker Second hand tobacco smoke exposure: No Alcohol intake: never Gender identity (if verbalized by the patient): Female Exam Narrative: GENERAL: Well appearing, well-nourished, non-toxic, in no acute distress. HEAD: Normocephalic, atraumatic. NECK: Supple. No adenopathy, no masses. RESPIRATORY: Airway patent, respirations nonlabored. Clear to auscultation bilaterally, no rales, rhonchi, wheezing. CARDIOVASCULAR: Regular rate and rhythm without murmurs, rubs, or gallops. Peripheral pulses 2+ and equal bilaterally. ABDOMINAL: Soft, nontender, nondistended, no hepatosplenomegaly. Normoactive BS. MUSCULOSKELETAL: Moves all extremities. Strength/ROM intact without gross deformities. SKIN: Warm, dry, normal color. No rashes. NEURO: A&O X3. Speech clear. Cranial nerves II-XII grossly intact. Steady gait. No ataxic movements. PSYCHIATRIC: Appropriate mood and affect. Normal interaction. Course Vital Signs Vital signs: Vital Signs Temperature 36.4 C 07/05/24 14:03 Pulse Rate 78 07/05/24 14:03 Respiratory Rate 18 07/05/24 14:03 Blood Pressure 121/78 07/05/24 14:03 Pulse Oximetry 100 07/05/24 14:03 Temperature 36.4 C 07/05/24 14:03 Pulse Rate 78 07/05/24 14:03 Respiratory Rate 18 07/05/24 14:03 Blood Pressure 121/78 07/05/24 14:03 Pulse Oximetry 100 07/05/24 14:03 MDM - Extremity (Nontraumatic) MDM Narrative Medical decision making narrative: Patient is a 23 year female who presents to the ER with concerns that her right thigh is more swollen than her left thigh. She denies pain, infection, redness. Patient reports she had a baby 1 month. She reports her OBGYN put her on blood pressure medication because she had preeclampsia. Patient was wondering if this is a side effect of that medication. Her OBGYN advised her to, to rule out a deep vein thrombosis in her right thigh. She denies any chest pain, shortness a breath, recent fevers. Labs Ordered: None needed Imaging Ordered: Doppler US Right lower extremity Results: Negative for DVT Diagnosis: R thigh swelling d/t unknown causes Disposition/Plan: Results provided to patient. Patient verbalizes understanding of results and is in agreement with plan for discharge. Extensive amount of time was spent discussing reasons for patient to return to the ER. Differential Diagnosis Differential diagnosis: Likely cellulitis, lower extremity edema and deep vein thrombosis of lower extremity Discharge Plan Discharge Clinical Impression: Lower extremity edema Patient Disposition: Home, Self-Care Condition: Stable Instructions: Antibiotic Form, Leg Edema (ED) Additional Instructions: Please return to the ER with any worsening symptoms. Follow-up with the primary care provider as soon as possible. Prescriptions: No Action No Home Medications Follow-up/Referrals: UNKNOWN,DOCTOR [Primary Care Provider] - Time of Disposition: 17:29
[2024-07-05 17:39] VITALS: BP 133/97; PULSE 62; RESP 18; TEMP 36.6; O2SAT 97
== END 2024-07-05 17:40 | disposition home or self-care (01) ==
PROVIDERS: Emergency Provider Registered Nurse
DX: R60.0 Localized edema (principal); J45.909 Unspecified asthma, uncomplicated
CPT/HCPCS: 93971; 99284

== ENCOUNTER 2025-06-11 23:06 | Emergency (ER) | payer OTHER, MEDICAID, SELFPAY ==
--- OUTSIDE RECORDS SUMMARY | 2009-12-19 03:00 | XMS_ITS | Continuity of Care Document ---
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 [address] , [address], [place], [address], [place]. tel:[phone] Family History Family Member Type Diagnosis Age At Onset No Information Payers Payer name Insurance type Covered libertarian ID Authoriza tisrini(s) [employer] Vision Plan CI [id number] Social History Type Description Quantity Date Captured Comments Sex Female Smoking Status No Information Chief Complaint And Reason For Visit No Information Reason For Referral Reason For Referral No Information History Of Present Illness Encounter Date Complaint History Of Prese nt Illness No Information Functional Status Date Functional Assessmen t No Information Instructions Date Instruction Additional Infor mation No Information Assessments Type Assessment Date No Information Patient Care Teams Name Effective Dates (start - stop) Status Members No Information
--- OUTSIDE RECORDS SUMMARY | 2009-12-19 03:00 | XMS_ITS | Continuity of Care Document ---
Author Organization [facility] Address [address] [place] [address] [place] [address] Phone Care Team Providers Care Line Service Supervisor Name Role Phone Bailey OD, Ben Unavailable Unavailable Procedures Procedure Date Eye Exam & Treatment Refraction Advance Directives Directive Yes / No Effective Date File Name No Information Encounters Encounter Description Practice Location Reason(s) For Visit Diagnoses Date Provider Providers Copied on Encounter [facility], [address], [place], [place], [id number], [place] tel:[phone] [facility] Danny No Information December-0 8-201 0 Bailey OD Ben. [address] , [address], [place], [address], [place]. tel:[phone] Family History Family Member Type Diagnosis Age At Onset No Information Payers Payer name Insurance type Covered constitution party ID Authoriza tisrini(s) [employer] Vision Plan CI [id number] Social History Type Description Quantity Date Captured [...]
--- OUTSIDE RECORDS SUMMARY | 2025-06-11 23:09 | XMS_ITS | Encounter Summary ---
Author Organization [facility] Address [address] [place] [address] Care Team Providers Care Internet Ecommerce Specialist Name Role Phone Lynn Hernadez MD Primary Care Pr ovider Reason for Visit * Reason Comments Letter for School/Work Encounter Details Date Type Department Care Team (Late st Contact Info) Description 11/12/2024 Telephone [facility] Internal Medicine - [place] [address] [place] [address] [place] [address] [place] [address] Letter for School/Work Social History Tobacco Use Types Packs/Day Years Used Date Smoking Tobacco: Never Smokeless Tobacco: Never Alcohol Use Standard Drinks/Week Comments No 0 (1 standard drink = 0.6 oz pur e alcohol) Comments No Sex and Gender Information Value Date Recorded Sex Assigned at Not on file 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 Topic: Patient or Caregiver Communication Request >> Nov 12, 2024 9:04 AM Eugenio Law wrote: Patient or Caregiver requesting that a message be sent to Care Team Caller: Americo James Patient/Caregiver Callback Number: Telephone Information: Call Notes: patient states she left a message for DR. Shell 11/06 about returning back to work and request a letter per Principal Trainer due for being sent home from work of high blood pressure , please advise documented in this encounter Plan of Treatment Upcoming Encounters Date Type Department Care Team (Late st Contact Info) Description 10/27/2025 1:30 PM CDT Office Visit [facility] Primary Care [place] [address] [place] [address] [place] [address] [place] [address] documented as of this encounter Visit Diagnoses Not on filedocumented in this encounter Care Teams Internet Ecommerce Specialist Relationship Specialty [place] [address] [place] [address] PCP - General Internal Medicine 10/21/24 documented as of this encounter
--- OUTSIDE RECORDS SUMMARY | 2025-06-11 23:09 | XMS_ITS | Clinical Summary ---
Author Organization [facility] Address [address] [address] Care Team Providers Care Atomic Fuel Assembler Name Role Phone Lynn Hernadez MD Primary Care Pr ovider Allergies Active Allergy Reactions Criticality Noted Date Comments Peanut Anaphylaxis High 08/24/2018 Penicillins Anaphylaxis High 10/21/2024 Medications Norethindrn A-E estradiol-Iron 1 mg-20 mcg (24)/75 mg (4) tablet Take 1 Tablet by mouth daily. 4 Active atogepant (Qulipta) 60 mg TabletIndication s:Migraine with aura and without status migrainosus, not intractable Take 1 Tablet (60 mg) by mouth daily. 90 Tablet 3 5 Active losartan (COZAAR) 25 mg tabletIndication s:Essential hypertension Take 1 Tablet (25 mg) by mouth daily. 90 Tablet 3 5 Active albuterol sulfate HFA 90 mcg/actuation aerosol inhalerIndicatio ns:Migraine with aura and without status migrainosus, not intractable Take 2 Puffs by inhalation every 6 hours as needed for Shortness of Breath. 8.5 Gram 11 5 Active budesonide-formo teroL (SYMBICORT) 160-4.5 mcg/actuation HFA Aerosol InhalerIndicatio ns:Migraine with aura and without status migrainosus, not intractable Take 2 Puffs by inhalation 2 times daily. 10.2 Gram 11 5 Active albuterol (PROVENTIL,MEKA CHRISTY) 2.5 mg /3 mL (0.083 %) Solution for Nebulization Take 2.5 mg by inhalation 4 times daily as needed. 06/07/20 Active Problems Problem Noted Date Diagnosed Date Essential hypertension 10/21/2024 Migraine with aura and witho ut status migrainosus, not intractable 10/21/2024 Mild intermittent asthma without complication Depression affecting pregnan cy in second trimester, antepartum 01/01/2024 H/O depression, currently Breast fibroadenoma, left 08/24/2018 Resolved Problems Problem Noted Date Diagnosed Date Resolved Date Sign and symptom in breast 01/01/2019 0 01/08/2019 Abnormal ultrasound of breast 08/24/2018 01/08/2019 Encounters Date Type Department Care Team Description 06/03/2025 External Device Data [facility] ABSTRACTION Provider, Abstract 04/15/2025 External Device Data [facility] ABSTRACTION Provider, Abstract 04/01/2025 External Device Data [facility] ABSTRACTION Provider, Abstract 04/01/2025 External Device Data [facility] ABSTRACTION Provider, Abstract 03/19/2025 External Device Data [facility] ABSTRACTION Provider, Abstract 03/18/2025 External Device Data [facility] ABSTRACTION Provider, Abstract from Last 3 Months Immunizations Immunization Administration Dates Next Due (ADACEL/BOOSTRIX)(10 YR UP) TDAP VACCINE, 0.5ML, IM 03/18/2024,08/17/2022 Family History Medical History Relation Name Comments Breast Cancer Cousin Diabetes Mother Heart Disease Mother Diabetes Sister Relation Name Status Comments Brother Alive Cousin Alive Father Alive Mother Alive Sister Alive Social History Tobacco Use Types Packs/Day Years Used Date Smoking Tobacco: Never Smokeless Tobacco: Never Alcohol Use Standard Drinks/Week Comments No 0 (1 standard drink = 0.6 oz pur e alcohol) Comments No Sex and Gender Information Value Date Recorded Sex Assigned at Not on file 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 Gender Identity Not on file Sexual Orientation Not on file Last Filed Vital Signs Vital Sign Reading Time Taken Comments Blood Pressure 118/72 10/21/2024 1:50 PM CDT Pulse 74 10/21/2024 1:50 PM CDT Temperature 36.1 C (96.9 F) 10/21/2024 1:50 PM CDT Respiratory Rate - - Oxygen Saturation 98% 10/21/2024 1:50 PM CDT Inhaled Oxygen Concentration - - Weight 65.8 kg (145 lb) 10/21/2024 1:50 PM CDT Height 170.2 cm (5' 7) 10/21/2024 1:50 PM CDT Body Mass Index 22.71 10/21/2024 1:50 PM CDT Plan of Treatment Upcoming Encounters Date Type Department Care Team (Late st Contact Info) Description 10/27/2025 1:30 PM CDT Office Visit [facility] Primary Care [place] [address] [place] [address] [place] [address] [place] [address] Health Maintenance Due Date Last Done Comments HPV VACCINES (1 - 3-dose series) 11/23/2015 HEPATITIS B VACCINES (1 of 3 - 19+ 3-dose series) 11/23/2019 CERVICAL CANCER SCREENING 2021 HPV/Cotest (21-29) 2021 PAP SMEAR 2021 INFLUENZA VACCINE (#1) 2025 COVID-19 Vaccine (2 - 2024- season) 2025 DTAP/TDAP/TD VACCINES (3 - T d or Tdap) 03/18/2034 03/18/2024, 08/17/2022 Preventative Visit- Commercial Completed 0 10/21/2024, 04/21/2023, 01/15/2021 Insurance [facility] OPEN ACCESS HMO FORMERLY [facility] OPEN ACCESS HMO Care Teams Atomic Fuel Assembler Relationship Specialty [place] [address] [address] [place] [phone] PCP - General Internal Medicine 10/21/24
--- OUTSIDE RECORDS SUMMARY | 2025-06-11 23:09 | XMS_ITS | Clinical Summary ---
Author Organization [facility] Address [address] [address] Care Team Providers Care Supply Coordinator Name Role Phone KatySapphire miles Abilio DO Unavailable Source Comments [facility],non-owned Affiliates and Associated Physician Practices is amultiple site organization consisting of ambulatory clinics and hospital sitesin [place], [place], [place] and [place]. This disclosure is being madepursuant to the Care Everywhere program and may not contain all information available regarding this patient. Last updated 18.[facility] Allergies Active Allergy Reactions Criticality Noted Date Comments Peanut-Derived Urticaria High 03/07/2018 Peanut-Derived Anaphylaxis High 10/11/2024 Penicillins Urticaria High 03/07/2018 Penicillins Urticaria Medium 10/11/2024 Medications * Be aware that medications may not be up to date on this document. Alwaysverify current medications with the patient. albuterol (Proventil;Gustabo jes) (2.5 MG/3ML) 0.083% nebulizer solution Inhale the contents of 1 vial (2.5 mg) via nebulizer 4 times daily as needed for Shortness of Breath or Wheezing 90 mL 2 06/07/2024 1:27 PM CDT Active budesonide-formo terol (Symbicort) 160-4.5 MCG/ACT inhaler Inhale 2 (two) puffs by mouth 2 times daily 10.2 g 06/07/2024 1:27 PM CDT Active lactobacillus extra strength (Florajen) capsule Take 1 (one) capsule by mouth once daily Active clindamycin (Cleocin) 300 MG capsuleIndicatio ns:BV (bacterial vaginosis) Take 1 (one) capsule by mouth 2 times daily for 7 days 14 capsule 06/13/20 Active fluconazole (Diflucan) 150 MG tabletIndication s:Vulvovaginal Candidiasis Take 1 (one) tablet by mouth every 3 days for 2 doses Reasons: Vagina and 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 Clindamycin resistant. 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 If complications, such as preeclampsia, macrosomia or poor glucose control develop, then delivery plans may need to be revised. Chlamydia infection affectin g in second trimester 07/11/2022 11/10/2023 Overview (07/11/2022): 07/11 Needs MICHELLE in August 04 weeks gestation of 07/09/2022 07/11/2022 Abnormal uterine bleeding du e to endometrial polyp 03/02/2021 07/11/2022 Dysmenorrhea 01/15/2021 07/11/2022 Irregular bleeding 01/15/2021 Chest pain 01/15/2021 Encounters Date Type Department Care Team Description 06/10/2025 Results Follow-Up [facility] - INSPECTOR CHIEF [address] [place] [address] [place] [phone] Lilia Clayton APRN-SUNG 06/06/2025 2:00 PM CDT Office Visit [facility] - INSPECTOR CHIEF [id number] [place] [address] [place] [phone] Sapphire Christian, BV (bacterial vaginosis) (Primary Dx); Well woman exam with routine gynecological exam 06/06/2025 Travel 05/16/2025 Telephone [facility] - INSPECTOR CHIEF [address] [place] [address] [place] [address] [phone] Marleen Cummins Appointment (Appointment Request) 04/24/2025 Results Follow-Up [facility] - INSPECTOR CHIEF [id number] [place] [address] [place] [id number] Lilia Clayton APRN-SUNG 04/22/2025 2:00 PM CDT Office Visit [facility] - INSPECTOR CHIEF [address] [facility] [address] [place] [address] Lilia Clayton APRN-CNP Vaginal discharge (Primary Dx); Screening for venereal disease; Vaginal odor; Vaginal itching 04/22/2025 Travel from Last 3 Months Immunizations Immunization Administration Dates Next Due MMR 06/05/2024(Deferred: See Comment s - rubella immune) TDAP (7yrs+) 06/05/2024(Deferred: - received 03/18/24),03/18/2024,08/17/2022 Family History Medical History Relation Name Comments Diabetes - Type 1 Mother Relation Name Status Comments Mother Social History Tobacco Use Types Packs/Day Years Used Date Smoking Tobacco: Never Smokeless Tobacco: Never Tobacco Cessation:Counseling Given: Not Answered Alcohol Use Standard Drinks/Week Comments Never 0 (1 standard drink = 0.6 oz pur e alcohol) AUDIT-C Answer Date Recorded Q1: How often do you have a drink containing alcohol? Never 10/11/2024 Q2: How many drinks containi ng alcohol do you have on a typical day when you are drinking? Patient does not drink Q3: How often do you have si x or more drinks on one occasion? Never 10/11/2024 Overall Financial Resource Strain (CARDIA) Answe r Date Recorded How hard is it for you to pa y for the very basics like food, housing, medical care, and heating? Not very hard 06/04/2024 PHQ-2 Answer Date Recorded Patient Health Questionnaire-2 Score 0 04/22/2025 [facility] [place] [facility] Occupat ional Health - Occupational Stress Questionnaire Answer Date Recorded Do you feel stress - tense, restless, nervous, or anxious, or unable to sleep at night because your mind is troubled all the time - these days? Not at all 06/04/2024 Hunger Vital Sign Answer Date Recorded Within the past 12 months, y ou worried that your food would run out before you got the money to buy more. Never true 06/04/20 24 Within the past 12 months, t he food you bought just didn't last and you didn't have money to get more. Never true 06/04/2024 PRAPARE - Transportation Answer Date Re corded In the past 12 months, has l ack of transportation kept you from medical appointments or from getting medications? No 05/15 In the past 12 months, has l ack of transportation kept you from meetings, work, or from getting things needed for daily living? No 06/04/2024 Housing Stability Vital Sign Answer Chago e Recorded In the last 12 months, was t here a time when you were not able to pay the mortgage or rent on time? Patient declined 05/20/20 24 In the last 12 months, how many places have you lived? 1 05/20/2024 In the last 12 months, was t here a time when you did not have a steady place to sleep or slept in a retirement (including now)? Patient declined 05/20/2024 Orlando Depression Scale Answer Date Recorded Orlando Depression Scale Total 18 07/02/2024 The thought of harming myself has occurred to me . Never 07/02/2024 Housing Stability Vital Sign Answer Chago e Recorded In the last 12 months, was t here a time when you were not able to pay the mortgage or rent on time? No 06/04/2024 In the past 12 months, how m any times have you moved where you were living? 0 06/04/2024 At any time in the past 12 m [facility], were you homeless or living in a retirement (including now)? No 06/04/2024 Comments No Sex and Gender Information Value Date Recorded Sex Assigned at Not on file Legal Sex Female 5:05 AM PLAYGROUND AIDE Gender Identity Not on file Sexual Orientation Not on file Occupation Industry Job Start Date Job End Date [employer] school Not on file Not on file Not on file Last Filed Vital Signs Vital Sign Reading Time Taken Comments Blood Pressure 120/80 06/06/2025 2:00 PM CDT Pulse 99 06/06/2025 2:00 PM CDT Temperature 36.7 C (98.1 F) 10/11/2024 3:04 PM PLAYGROUND AIDE Respiratory Rate 16 10/11/2024 3:04 PM PLAYGROUND AIDE Oxygen Saturation 99% 10/11/2024 3:04 PM PLAYGROUND AIDE Inhaled Oxygen Concentration - - Weight 68 kg (150 lb) 06/06/2025 2:00 PM CDT Height 172.7 cm (5' 8) 06/06/2025 2:00 PM CDT Body Mass Index 22.81 06/06/2025 2:00 PM CDT Plan of Treatment Health Maintenance Due Date Last Done Comments HPV VACCINE (1 - 3-dose series) 11/23/2015 HEPATITIS B VACCINE (1 of 3 - 19+ 3-dose series) 11/23/2019 PNEUMOCOCCAL VACCINE (1 of 2 - PCV) 11/23/2019 COVID-19 VACCINE (3 - season) 2025 07/01/2021, 06/10/2021 INFLUENZA VACCINE (#1) 2025 CHLAMYDIA/GONORRHEA SCREENING 04/22/2026 04/22/2025, 01/22/2025, 03/31/2024, Additional history exists PAP SMEAR 06/06/2028 06/06/2025, 04/06/2022 DTAP/TDAP/TD VACCINES (3 - Td or Tdap) 03/18/2034 03/18/2024, 08/17/2022 ZOSTER VACCINE (1 of 2) 2050 HEPATITIS C SCREENING Completed 10/18/2023 HIV SCREENING Completed 10/18/2023, 03/15, 03/24/2021 DEPRESSION SCREENING Completed 11/08/2024, 10/18/2023, 04/06/2022 HIB VACCINE Aged Out No longer eligi ble based on patient's age to complete this topic MENINGOCOCCAL (Group B) VACCINE SHARED DECISION-MAKING Aged Out No longer eligible based on patient's age to complete this topic MENINGOCOCCAL GROUPS A/C/Y/W VACCINE Aged Out No longer eligible based on patient's age to complete this topic Procedures Procedure Name Priority Date/Time Associated Diagnosis Comments PAP IG LB RFLX HPV APTIMA ASCU Routine 06/06/2025 2:38 PM CDT Well woman exam with routine gynecological exam MYCOPLASMA GENITAL SPECIES FIDEL PROFILE Routine 04/22/2025 3:02 PM CDT Vaginal discharge Screening for venereal disease Vaginal odor Vaginal itching VAGINITIS PLUS (BV CA CT NG TRICH) Routine 04/22/2025 2:59 PM CDT Vaginal discharge Screening for venereal disease Vaginal odor Vaginal itching HEPATITIS C ANTIBODY W RFLX PCR Routine 10/18/2023 2:58 PM PLAYGROUND AIDE Encounter for supervision of other normal in first trimester PROFILE W T PALLIDUM W HIV Routine 10/18/2023 2:58 PM PLAYGROUND AIDE Encounter for supervision of other normal in first trimester from Last 3 Months or Most Recently Relevant to Health Maintenance Results * PAP IG LB RFLX HPV APTIMA ASCU (06/06/2025 2:38 PM CDT) Diagnosis Comment [facility] INSURANCE BILL Comment:NEGATIVE FOR INTRAEP ITHELIAL LESION OR MALIGNANCY. Specimen Adequacy Comment [facility] INSURANCE BILL Comment:Satisfactory for demetrio luation. No endocervical component is identified. Clinician Provided ICD10 Comment [facility] INSURANCE BILL Comment:Z01.419 Performed by Comment [facility] INSURANCE BILL Comment:All ramirez, Hull Molder (ASCP) Comment . [facility] INSURANCE BILL Note Comment [facility] INSURANCE BILL Comment: The Pap smear is a screening test designed to aid in the detection of premalignant and malignant conditions of the uterine cervix. It is not a diagnostic procedure and should not be used as the sole means of detecting cervical cancer. Both false-positive and false-negative reports do occur. [facility] CPT Code Automation Comment [facility] INSURANCE BILL Comment: This liquid based ThinPrep(R) pap test was interpreted using the Agent Ace(R) Genius(TM) Cervical Algorithm whole slide imaging system. Note Comment [facility] INSURANCE BILL Comment: The HPV DNA reflex criteria were not met with this specimen result therefore, no HPV testing was performed. Pathology/Cytolog y ENTIRE ENDOCERVIX / Unknown 06/06/2025 2:38 PM CDT 06/06/2025 Comment:Endocrvx Release to p Narrative [facility] INSURANCE BILL - 06/10/2025 3:10 PM CDT [facility] [place] [id number] Marine Diver: Melodie Ulloa MD, Phone: [phone] Specimen Comment: [id number] Specimen Comment: Source.............Endocervix Specimen Comment: No. of containers..01 ThinPrep Vial us Sapphire Christian DO LAB - PATHOLOGY/CYTOLOGY ORDERAB LES Final Result Performing Organization Address [facility] Co de Phone Number [facility] INSURANCE BILL [address] [place] [address] * (ABNORMAL) MYCOPLASMA GENITAL SPECIES FIDEL PROFILE (04/22/2025 3:02 PM CDT) Mycoplasma genitalium FIDEL Negative Negative [facility] INSURANCE BILL Mycoplasma hominis FIDEL Negative Negative [facility] INSURANCE BILL Ureaplasma FIDEL Positive(A) Negative [facility] INSURANCE BILL Microbiology ENTIRE VAGINA / Unknown 04/22/2025 3:02 PM CDT 04/22/2025 Comment:[place] Narrative [facility] INSURANCE BILL - 04/24/2025 11:08 PM CDT Test(s) 913098-Wenceniupe hominis FIDEL; 636834-Zljcxtztpe spp FIDEL was developed and its performance characteristics determined by [facility]. It has not been cleared or approved by the Food and Drug Administration. Performed at: - [address] [id number] Marine Diver: Allan Mcgraw MD, Phone: [phone] us Lilia Clayton FENCE ERECTOR-GROUND WATER CONTRACTOR LAB - MICROBIOLOGY ORDERA BLES Final Result Performing Organization Address [facility] Co de Phone Number [facility] INSURANCE BILL [address] [place] [address] * (ABNORMAL) VAGINITIS PLUS (BV CA CT NG TRICH) (04/22/2025 2:59 PM CDT) Atopobium vaginae High - 2(A) Score [facility] INSURANCE BILL BVAB 2 Low - 0 Score [facility] INSURANCE BILL Megashaera High - 2(A) Score [facility] INSURANCE BILL Comment: Calculate total score by adding the 3 individual bacterial vaginosis (BV) marker scores together. Total score is interpreted as follows: Total score 0-1: Indicates the absence of BV. Total score 2: Indeterminate for BV. Additional clinical data should be evaluated to establish a diagnosis. Total score 3-6: Indicates the presence of BV. Maricarmen albicans FIDEL Negative Negative [facility] INSURANCE BILL Maricarmen glabrata FIDEL Negative Negative [facility] INSURANCE BILL Trichomonas vaginalis by FIDEL Negative Negative [facility] INSURANCE BILL Chlamydia Trachomatis FIDEL Negative Negative [facility] INSURANCE BILL GC FIDEL Negative Negative [facility] INSURANCE BILL Microbiology ENTIRE VAGINA / Unknown 04/22/2025 2:59 PM CDT 04/22/2025 Comment:[place] Narrative [facility] INSURANCE BILL - 04/24/2025 6:09 AM CDT Test(s) 372101- Atopobium vaginae; 208891- BVAB 2; 376191- Megasphaera 1 was developed and its performance characteristics determined by [employer]. It has not been cleared or approved by the Food and Drug Administration. Test(s) 760756-Krxcqin albicans, FIDEL; 494509-Tyksvqg glabrata, FIDEL was developed and its performance characteristics determined by [employer]. It has not been cleared or approved by the Food and Drug Administration. Performed at: 01 - [address] [id number] Marine Diver: Melodie Ulloa MD, Phone: [phone] Lilia Clayton APRN-SUNG LAB - MICROBIOLOGY ORDERA BLES Final Result Performing Organization Address City/[facility]/ZIP Co de Phone Number [facility] [address] [place] [address] * HEPATITIS C ANTIBODY W RFLX PCR (10/18/2023 2:58 PM PLAYGROUND AIDE) Hepatitis C Antibody Non Reactive Non Reactive [facility] INSURANCE BILL Blood BLOOD SPECIMEN / Unknown 10/18/2023 2:58 PM PLAYGROUND AIDE 10/18/2023 Narrative Resulting Agency Comment Lab Testing performed at: [facility] [address] [facility] [id number] us Sapphire Christian DO LAB - CHEMISTRY ORDERABLES Final Result Performing Organization Address City/[facility]/ZIP Co de Phone Number [facility] [address] [place] [address] * PROFILE W T PALLIDUM W HIV (10/18/2023 2:58 PM PLAYGROUND AIDE) Hepatitis B Virus Surface Antigen Negative Negative [facility] INSURANCE BILL T pallidum Antibody (TP-PA) Non Reactive Non Reactive [facility] INSURANCE BILL Rubella Antibody 1.68 Immune >0.99 index [facility] INSURANCE BILL Comment: Non-immune <0.90 Equivocal 0.90 - 0.99 Immune >0.99 ABO O [facility] INSURANCE BILL Rh Type Positive [facility] INSURANCE BILL Comment: Please note: Prior records for this patient's ABO / Rh type are not available for additional verification. Antibody Screen Negative Negative [facility] INSURANCE BILL HIV Screen 4th Generation w Reflex Non Reactive Non Reactive [facility] INSURANCE BILL Comment: HIV Negative HIV-1/HIV-2 antibodies and HIV-1 p24 antigen were NOT detected. There is no laboratory evidence of HIV infection. WBC 6.8 3.4 - 10.8 x10E3/uL [facility] INSURANCE BILL RBC 4.55 3.77 - 5.28 x10E6/uL [facility] INSURANCE BILL Hemoglobin 12.5 11.1 - 15.9 g/dL [facility] INSURANCE BILL Hematocrit 38.5 34.0 - 46.6 % [facility] INSURANCE BILL MCV 85 79 - 97 fL [facility] INSURANCE BILL MCH 27.5 26.6 - 33.0 pg [facility] INSURANCE BILL MCHC 32.5 31.5 - 35.7 g/dL [facility] INSURANCE BILL RDW 12.8 11.7 - 15.4 % [facility] INSURANCE BILL Platelet Count 318 150 - 450 x10E3/uL [facility] INSURANCE BILL Granulocytes % 54 Not Estab. % [facility] INSURANCE BILL Lymphocytes % 34 Not Estab. % [facility] INSURANCE BILL Monocytes % 8 Not Estab. % [facility] INSURANCE BILL Eosinophils % 4 Not Estab. % [facility] INSURANCE BILL Basophils % 0 Not Estab. % [facility] INSURANCE BILL Immature Cells NOT AVAILABLE [facility] INSURANCE BILL Comment:Result cannot be obt ained for this observation. Granulocytes Absolute 3.6 1.4 - 7.0 x10E3/uL [facility] INSURANCE BILL Lymphocytes Absolute 2.3 0.7 - 3.1 x10E3/uL [facility] INSURANCE BILL Monocytes Absolute 0.5 0.1 - 0.9 x10E3/uL [facility] INSURANCE BILL Eosinophils Absolute 0.3 0.0 - 0.4 x10E3/uL [facility] INSURANCE BILL Basophils Absolute 0.0 0.0 - 0.2 x10E3/uL [facility] INSURANCE BILL Immature Granulocytes 0 Not Estab. % [facility] INSURANCE BILL Immature Granulocytes Absolute 0.0 0.0 - 0.1 x10E3/uL [facility] INSURANCE BILL nRBC NOT AVAILABLE [facility] INSURANCE BILL Comment:Result cannot be obt ained for this observation. Comment Hematology NOT AVAILABLE [facility] INSURANCE BILL Comment:Result cannot be obt ained for this observation. Blood BLOOD SPECIMEN / Unknown 10/18/2023 2:58 PM PLAYGROUND AIDE 10/18/2023 Narrative Resulting Agency Comment [facility]: [facility] [address] [facility] [id number] us Sapphire Christian DO LAB - SEROLOGY ORDERABLES Final Result [facility] INSURANCE BILL [address] [place] [address] from Last 3 Months or Most Recently Relevant to Health [place] [address] [facility] [place] [address] [facility] [address] [place] [address] MED[place] [facility] [place] [address] [place] [address] [place] [address] [place] [address] [place] [address] * Guarantor: ALVARO JAMES Account Type Relation to Patient Date of Phone Billing Address Personal/Family Father Advance Directives * Full Code (Latest Code Status on File) Date Activated Date Inactivated Comments 06/07/2024 8:42 AM 06/07/2024 2:59 PM * Full Code Date Activated Date Inactivated Comments 05/29/2024 11:13 PM 06/01/2024 5:38 PM * Full Code Date Activated Date Inactivated Comments 05/29/2024 10:43 PM 05/29/2024 11:12 PM * Full Code Date Activated Date Inactivated Comments 05/20/2024 2:08 PM 05/20/2024 6:15 PM * Full Code Date Activated Date Inactivated Comments 05/13/2024 4:20 PM 05/13/2024 7:57 PM Care Teams Supply Coordinator Relationship Specialty [place] [address] [facility] [address] [place], [place] [phone] Obstetrics and Gynecology 01/25/23
--- OUTSIDE RECORDS SUMMARY | 2025-06-11 23:09 | XMS_ITS | Encounter Summary ---
Author Organization [facility] Address [facility] [facility] [place] [address] Care Team Providers Care Basting Puller Name Role Phone KatySapphire miles Abilio DO Unavailable Encounter Details Date Type Department Care Team (Late st Contact Info) Description 06/10/2025 Results Follow-Up [facility] - GEOTECHNICAL ENGINEER [address] [address] Lilia Clayton APRN-INSTRUCTOR [place] [address] [address] Social History Tobacco Use Types Packs/Day Years Used Date Smoking Tobacco: Never Smokeless Tobacco: Never Alcohol Use Standard Drinks/Week Comments Never 0 [...] Recorded Patient Health Questionnaire-2 Score 0 04/22/2025 [facility] Health - Occupational Stress [...] money to buy more. Never true 06/04/20 Within the past 12 months, t he [...] or rent on time? Patient declined 05/20/20 In the last 12 months, how many places have you lived? 1 05/20/2024 In the last 12 months, was t here a time when you did not have a steady place to sleep or slept in a care home (including now)? Patient declined 05/20/2024 Homer Depression Scale Answer Date Recorded Homer Depression Scale Total 18 07/02/2024 The thought [...] any time in the past 12 m [facility], were you homeless or living in a care home (including now)? 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 Answer Date of Assessment Author No 06/04/2024 7:38 AM Matilde Zamora RN * Is person blind or have serious difficulty seeing? Answer Date of Assessment Author No 06/04/2024 7:38 AM Matilde Zamora RN * Does person have serious difficulty walking/climbing stairs? Answer Date of Assessment Author No 06/04/2024 7:38 AM Matilde Zamora RN * Does person have difficulty dressing/bathing? Answer Date of Assessment Author No 06/04/2024 7:38 AM Matilde Zamora RN * Does person have difficulty doing errands alone? Answer Date of Assessment Author No 06/04/2024 7:38 AM Matilde Zamora RN documented as of this encounter Mental Status * Does person have difficulty concentrating/remembering/making decisions? Answer Entry Date Author No 06/04/2024 7:38 AM Matilde Zamora RN documented in this encounter Plan of Treatment Not on file documented as of this encounter Visit Diagnoses Not on filedocumented in this encounter Care Teams Basting Puller Relationship Specialty [place] [address] [phone] Obstetrics and Gynecology 01/25/23 documented as of this encounter
--- OUTSIDE RECORDS SUMMARY | 2025-06-11 23:09 | XMS_ITS | Data Portability ---
Author Organization MICHELLE ANDREWMaria D Zeng Address [address] [facility] [place] [address] Assessment No assessment recorded. Plan of Treatment Reminders Order Date Submit Date Provider Last Modified By Organization Details Last Modified Time Details Appointments None recorded. Lab PPD (purified protein derivative) , skin test 2020 CARON In-Office Order, Internal Use Only DO Not Attach Compendium DO Not Attach Compendium, Do Not Delete/merge, [id number] 10:45:51 PPD (purified protein derivative) , skin test 2020 CARON In-Office Order, Internal Use Only DO Not Attach Compendium DO Not Attach Compendium, Do Not Delete/merge, [id number] 13:17:26 Referral None recorded. Procedures None recorded. Surgeries None recorded. Imaging None recorded. Medication Orders Tubersol 5 tub. unit/0.1 mL intradermal injection solution 2020 021 [facility] #[id number], [address], [id number], 13:10:52 Tubersol 5 tub. unit/0.1 mL intradermal injection solution 2020 021 [facility] #[id number], [address], [id number], 19:24:25 Patient TargetsNo targets recorded. Patient Instructions Encounter Date Encounter Id Patient Instructions Last Modified By Organization Details Last Modified Time 01/29/2021 [id number] learning about tuberculosis (TB) [email or web address] Not available 01/29/2021 17:01:46 10/11/2024 [id number] Go to a hospital for further evaluation of your symptoms; failure to do so may jeopardize your health Not available 10/11/2024 14:14:42 Shared decision making with pt regarding the need to go to a hospital; pt acknowledges understanding; states she can have someone come and get her and take her to [facility]; that is where she wants to go Not available 10/11/2024 14:15:47 Reason for Referral None Reported. Results Created Date Observation Date Name Description Value Unit Range Abnormal Flag Note LastModifiedBy Organization Detail LastModifiedTime 02/02/2002/01/2021 PPD (andres fied prote in deriv ative ), skin test Result Negati ve Not Available In-Office Order Internal Use Only DO Not Attach Compendium DO Not Attach Compendium, Do Not Delete/merge, [id number] 01/29/2021 17:00:04 02/11/20 21 02/10/2021 PPD (andres fied prote in deriv ative ), skin test Result Negati ve Not Available In-Office Order Internal Use Only DO Not Attach Compendium DO Not Attach Compendium, Do Not Delete/merge, [id number] 02/08/2021 13:03:31 Result Notes None recorded. Problems No Known Problems Medical Equipment None Reported. Allergies Allergen ID Allergen Name Allergen Category Reaction Reaction Severity Criticality Documentation Date Start Date Code Code System Note Provider Name and Address Organization Details Recorded Time 308156 penicilla mine medicatio n Not available Not available Not available 01/29/2021 7975 RxNorm UNSUR E OF REACT OIN Lilia Kamara MA null, [place] - [facility] 16:22:51 Medications Name Sig Start Date Stop Date Status Note LastModified by Organization Details LastModified Time nifedipine ER 30 mg tablet,exte nded release 24 hr TAKE 1 TABLET BY MOUTH DAILY active Not Available Not Available No t Available terconazole 0.4 % vaginal cream INSERT 1 APPLICATOR FUL VAGINALLY AT BEDTIME active Not Available Not Available N ot Available Tubersol 5 tub. unit/0.1 mL intradermal injection solution Administer .1ml interderma lly 2020 active kcraig coconut jelly roller Not Available Not Available Not Available metronidazo le 500 mg tablet TAKE 1 TABLET BY MOUTH TWICE DAILY FOR 7 DAYS active Not Available Not Available No t Available nifedipine ER 30 mg tablet,exte nded release TAKE 1 TABLET BY MOUTH DAILY AT 9 AM. INCREASE BLOOD PRESSURE AND EDEMA DURING active Not Available Not Available No t Available ciprofloxac in 500 mg tablet TK 1 T PO Q 12 H active Not Available Not Available No t Available ondansetron 8 mg disintegrat ing tablet DISSOLVE 1 TABLET ON THE TONGUE EVERY 6 HOURS NEEDED FOR NAUSEA AND VOMITING active Not Available Not Available No t Available methocarbam ol 750 mg tablet TK 1 T PO TID PRN active Not Available Not Available No t Available phenazopyri dine 100 mg tablet TK 2 TS PO TID FOR 2 DAYS active Not Available Not Available No t Available cephalexin 500 mg capsule TK 1 C PO Q 12 H active Not Available Not Available No t Available hydroxyzine HCl 10 mg tablet TAKE 1 TABLET BY MOUTH FOUR TIMES DAILY NEEDED FOR ITCHING OR INSOMNIA active Not Available Not Available No t Available medroxyprog esterone 150 mg/mL intramuscul ar suspension ADMINISTER 1 ML IN THE MUSCLE EVERY 3 MONTHS active Not Available Not Available No t Available naproxen 500 mg tablet TK 1 T PO BID WF active Not Available Not Available No t Available metoclopram alton 10 mg tablet TAKE 1 TABLET BY MOUTH FOUR TIMES DAILY BEFORE MEALS AND AT NIGHT active Not Available Not Available No t Available Vitamin 27 mg iron-0.8 mg tablet TAKE 1 TABLET BY MOUTH ONCE DAILY active Not Available Not Available No t Available azithromyci n 500 mg tablet TAKE 2 TABLETS BY MOUTH ONCE active Not Available Not Available N ot Available escitalopra m 10 mg tablet TAKE 1 TABLET BY MOUTH DAILY active Not Available Not Available No t Available nitrofurant oin monohydrate /macrocryst als 100 mg capsule TK 1 C PO Q 12 H FOR 5 DAYS active Not Available Not Available No t Available FeroSul 325 mg (65 mg iron) tablet TAKE 1 TABLET BY MOUTH ONCE DAILY active Not Available Not Available No t Available norethindro ne 1 mg-ethin. estradiol 20 mcg (24)-iron 75 mg (4) capsule TAKE 1 CAPSULE BY MOUTH DAILY active Not Available Not Available No t Available Aurovela 24 Fe 1 mg-20 mcg (24)/75 mg (4) tablet TAKE 1 TABLET BY MOUTH DAILY active Not Available Not Available No t Available Vitals Date Recorded Body height Body mass index (BMI) Body weight Oxygen saturation Oxygen saturation in Arterial blood by Pulse oximetry Heart rate Respiratory rate Body temperature Systolic And Diastolic Provider Name and Address Organization Details Last Updated DateTime 5 172.72 cm 23 kg/m2 10615.4 5 g 100 % 100 % 90 /min 18 /min 98.1 [degF] 151/96 mm[Hg] Kenzie Oliver MA [facility] 5 13:32:43 Date Recorded Body temperature Body weight Body mass index (BMI) [Percentile] Per age and sex Body mass index (BMI) Body height Oxygen saturation Oxygen saturation in Arterial blood by Pulse oximetry Heart rate Systolic And Diastolic Provider Name and Address Organization Details Last Updated DateTime 95.6 [degF] 68656.0 8 g 57 % 22.4 kg/m2 172.72 cm 99 % 99 % 76 /min 118/74 mm[Hg] Lilia Kamara MA [facility] 16:24:56 Social History Question Answer Notes LastModified by Organizat ion Details LastModified Time Tobacco Smoking Status Never Smoker Lilia Kamara MA [facility] 01/29/2021 16:10:25 Are You Blind Or Do You Have Difficulty Seeing? No Information not available 10/11/2024 What Is Your Level Of Caffeine Consumption? Moderate Information not available 10/11/2024 Are You Deaf Or Do You Have Serious Difficulty Hearing? No Information not available 10/11/2024 What Type Of Diet Are You Following? REGULAR Information not available 10/11/2024 Are There Any Guns Present In Your Home? No Information not available 10/11/2024 What Was The Date Of Your Most Recent Tobacco Screening? 10/11/2024 Information not available 10/11/2024 Do You Use Your Seat Belt Or Car Seat Routinely? Yes Information not available 10/11/2024 Do You Have Smoke And Carbon Monoxide Detectors In Your Home? Yes Information not available 10/11/2024 Are You Passively Exposed To Smoke? No Information not available 10/11/2024 Do You Use Sunscreen Routinely? No Information not available 10/11/2024 Has Tobacco Cessation Counseling Been Provided? No Information not available 01/29/2021 Sex: Female Functional Status Question Answer Note LastModified by Organizat ion Details LastModified Time Do you use any illicit or recreational drugs? No Information not available 01/29/2021 Do you or have you ever used any other forms of tobacco or nicotine? No Information not available 01/29/2021 What is your level of alcohol consumption? Occasional Information not available 10/11/2024 Are you able to care for yourself independently? Yes Information not available 10/11/2024 What is your exercise level? None Information not available 10/11/2024 Mental Status Question Answer Note LastModified by Organization D etails LastModified Time Do you feel stressed (tense, restless, nervous, or anxious, or unable to sleep at night)? [id number] Information not available 10/11/2024 Family History Relationship Description Onset Age of this Age Resolved Age Notes LastModified by Organization Details LastModified Time Father No current problems or disability [email or web address] Not available 09/15 13:27:35 Mother No current problems or disability kanthonyma Not available 09/15 13:27:35 Medical History Condition Response Coronary Artery Disease N Other N High Blood Pressure N Atrial Fibrillation N Kidney or Bladder Problems N Thyroid Problems N GI Problems N Depression N COPD N Blood Clots N Have you had a mammogram in the last yea r? N Skin Problems N Eating Disorder N Anemia N Heart Attack ([place]) N Anxiety Disorder N Diabetes N Muscle, Joint, or Bone Problems N Arthritis N Seizures/Epilepsy N Have you had a colonoscopy in the last 1 0 years? N Acid Reflux (GERD) N Cancer N Stroke N Asthma N Allergies N Have you had a PSA blood test in the las t year? N ADHD N Substance Abuse N High Cholesterol N Hepatitis N Liver Disease N Schizophrenia N Headaches N Osteoporosis N Heart Failure N Gynecological HistoryNo gynecological history recorded. Obstetrics History GPAL:G 0 P 0 0 0 0 Past Encounters Encounter ID Performer Location Encounter Start Date Encounter Closed Date Diagnosis/Indication Diagnosis SNOMED-CT Code Diagnosis ICD10 Code Diagnosis IMO Codes Diagnosis Note [id number] Halina Rodrigues C [facility]EL[facility] ([address]) [address] [place] [address] 01/29/2021 15:58:44 02/01/2021 10:49:08 Tuberculosis screening 869091171 Z11.1 ppd per ma per vo. pt to return on 02/01, 02/08 and 02/10 for completion of 2 step tb reading [id number] Halina Rodrigues C [facility] ([address]) [address] [place] [address] 02/08/2021 12:31:35 02/10/2021 13:23:14 Tuberculosis screening 373835016 Z11.1 ppd per ma per vo. pt to return on 02/01, 02/08 and 02/10 for completion of 2 step tb reading [id number] SHEELA JUDD MD [facility] [address] [place] [address] 10/11/2024 13:12:19 10/14/2024 10:05:46 Body mass index 20-24 - normal 916282515 Z68.23 Hypertensive urgency 443 806670 I16.0 Health Concerns Section Related Observation LastModified by Organization Detai ls LastModified Time None Recorded Concern Status LastModified by Organization Details LastModified Time None Recorded Advance Directives Directive None Recorded Payers Insurance Date Sequence Insurance Name Policy Number Policy Thompson Covered Member ID Thompson Member ID Guarantor Name 10/14/2024 1 HARSHILNA [id number] Americo James [id number] Americo James Notes Date Note Type Note Provider Name and Address Organization Details Recorded Time 01/29/2021 text/html ROS as noted in the HPI Pt presents to clinic requesting an TB screening for schooling purposes. She denies nausea, vomiting, fever, chills, diarrhea,rash, cough, CP, SOB, CARABALLO, constipation and dysuria. Lilia Kamara MA [facility], [place] - [facility] 01/29/2021 17:01:58 10/11/2024 text/html Pt is a 23 yo female who presents with elevated b/p and headache; pt states she took her b/p med today as scheduled; states yesterday her b/p was higher and she had chest pain radiating down her left arm; pt has hx of preeclampsia; had her baby 4 months ago FRANKI GARCIA NP Attn: Accounting[address] [place], [address], [place] [facility] 10/11/2024 14:16:08 OBGyn Episode No OBEpisode recorded.
--- OUTSIDE RECORDS SUMMARY | 2025-06-11 23:09 | XMS_ITS | Encounter Summary ---
Author Organization [facility] [employer] [facility] Address [address] [place] [address] Care Team Providers Care Reagent Tender Helper Name Role Phone Lynn Hernadez MD Primary Care Pr ovider Reason for Visit * Reason Comments Medication Refill Encounter Details Date Type Department Care Team (Late Contact Info) Description 04/27/2019 Refill [facility] Breast Surgery [place] [address] [place] [phone] Bianca Sadler DO NO ADDRESS ON FILE Social History Tobacco Use Types Packs/Day Years Used Date Smoking Tobacco: Never Smokeless Tobacco: Never Alcohol Use Standard Drinks/Week Comments No 0 (1 standard drink = 0.6 oz pur e alcohol) Comments No Sex and Gender Information Value Date Recorded Sex Assigned at Not on file 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 Gender Identity Not on file Sexual Orientation Not on file documented as of this encounter Plan of Treatment Upcoming Encounters Date Type Department Care Team ([facility] Contact Info) Description 10/27/2025 1:30 PM CDT Office Visit [facility] Primary Care [place] [address] [place] [address] [place] [address] [place] [address] documented as of this encounter Visit Diagnoses Not on filedocumented in this encounter Care Teams Reagent Tender Helper Relationship Specialty [place] [address] [facility] [address] [place] [phone] PCP - General Internal Medicine 10/21/24 documented as of this encounter
[2025-06-11 23:25] VITALS: BP 136/82; PULSE 100; RESP 18; TEMP 38.6; O2SAT 100
[2025-06-12] VITALS (12 sets, daily range): BP systolic 112–124; BP diastolic 64–77; TEMP 37.2–37.3; O2SAT 98–99
[2025-06-12] MEDS: ACETAMINOPHEN 500 MG TABLET 1000 MG PO (00:14)
[2025-06-12 00:20] LABS: BEDSIDEPREGUCG Negative (Negative)
[2025-06-12 00:24] LABS: Add Urine Microscopic? NO; Appearance Urine Clear (Clear); Glucose Urine UA Negative (Negative); Leukocyte Esterase Ur Negative LEU/UL (Negative); Nitrate Urine Negative (Negative); Specific Grav Ur 1.016 (1.001-1.035)
[2025-06-12 00:26] LABS: Pregnancy On Board Control Positive
[2025-06-12 00:56] LABS: Influenza A QL RT-PCR Negative (Negative); Influenza B QL RT-PCR Negative (Negative); RSV RNA, RT-PCR Negative (Negative); SARS-CoV-2 RNA PCR Negative (Negative)
--- OUTSIDE RECORDS SUMMARY | 2025-06-12 01:10 | XMS_ITS | Clinical Summary ---
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 Gender Identity Not on file Sexual Orientation [...] Description 10/27/2025 1:30 PM CDT Office Visit [facility] Primary [facility] [place] [address] [place] [address] [place] [address] [place] [address] Health Maintenance Due Date Last Done [...] Commercial Completed 0 10/21/2024, 04/21/2023, 01/15/2021 Insurance [facility] OPEN ACCESS HMO [facility] OPEN ACCESS HMO Care Teams Ammunition Components Inspector Relationship Specialty [place] [address] [facility] [address] [place] [phone] PCP - General Internal Medicine 10/21/24
--- OUTSIDE RECORDS SUMMARY | 2025-06-12 01:10 | XMS_ITS | Encounter Summary ---
Author Organization [facility] Address [address] [place] [address] Care Team Providers Care Program Director Substance Abuse Name Role Phone Lynn Hernadez MD Primary Care Pr ovider Reason for Visit * Reason Comments Letter for School/Work Encounter Details Date Type Department Care Team (Late st Contact Info) Description 11/12/2024 Telephone [facility] Internal Medicine - [place] [address] [place] [address] [place] [address] [place] [address] Letter for School/Work Social History Tobacco Use Types Packs/Day Years Used Date Smoking Tobacco: Never Smokeless Tobacco: Never Alcohol Use Standard Drinks/Week Comments No 0 (1 standard drink = 0.6 oz pur e alcohol) Comments No Sex and Gender Information Value Date Recorded Sex Assigned at Not on file 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 Topic: Patient or Caregiver Communication Request >> Nov 12, 2024 9:04 AM Eugenio Law wrote: Patient or Caregiver requesting that a message be sent to Care Team Caller: Americo James Patient/Caregiver Callback Number: Telephone Information: Call Notes: patient states she left a message for DR. Shell 11/06 about returning back to work and request a letter per Security Strategist due for being sent home from work of high blood pressure , please advise documented in this encounter Plan of Treatment Upcoming Encounters Date Type Department Care Team (Late st Contact Info) Description 10/27/2025 1:30 PM CDT Office Visit [facility] Primary Care [place] [address] [place] [address] [place] [address] [place] [address] documented as of this encounter Visit Diagnoses Not on filedocumented in this encounter Care Teams Program Director Substance Abuse Relationship Specialty [place] [address] [facility] [address] [place] [address] PCP - General Internal Medicine 10/21/24 documented as of this encounter
--- OUTSIDE RECORDS SUMMARY | 2025-06-12 01:10 | XMS_ITS | Encounter Summary ---
Author Organization [facility] [email or web address] [facility] Address [address] [place] [address] Care Team Providers Care Audio Visual Coordinator Name Role Phone Lynn Hernadez MD Primary Care Pr ovider Reason for Visit * Reason Comments Medication Refill Encounter Details Date Type Department Care Team (Late Contact Info) Description 04/27/2019 Refill [facility] Breast Surgery [place] [address] [place] [phone] Bianca Sadler DO NO ADDRESS ON FILE Social History Tobacco Use Types Packs/Day Years Used Date Smoking Tobacco: Never Smokeless Tobacco: Never Alcohol Use Standard Drinks/Week Comments No 0 (1 standard drink = 0.6 oz pur e alcohol) Comments No Sex and Gender Information Value Date Recorded Sex Assigned at Not on file Legal Sex Female 2:00 PM DIALER Gender Identity Not on file Sexual Orientation Not on file documented as of this encounter Plan of Treatment Upcoming Encounters Date Type Department Care Team ([facility] Contact Info) Description 10/27/2025 1:30 PM CDT Office Visit [facility] Primary Care [place] [address] [place] [address] [place] [address] [place] [address] documented as of this encounter Visit Diagnoses Not on filedocumented in this encounter Care Teams Audio Visual Coordinator Relationship Specialty [place] [address] [facility] [address] [place] [phone] PCP - General Internal Medicine 10/21/24 documented as of this encounter
--- OUTSIDE RECORDS SUMMARY | 2025-06-12 01:10 | XMS_ITS | Clinical Summary ---
Author Organization [facility] Address [address] [place] [address] Care Team Providers Care Layout Mechanic Name Role Phone Sapphire Christian Abilio DO Unavailable Source Comments [facility],non-owned Affiliates and Associated Physician Practices is amultiple site organization consisting of ambulatory clinics and hospital sitesin [place], [place], [place] and [place]. This disclosure is being madepursuant to the Care Everywhere program and may not contain all information available regarding this patient. Last updated 18.[facility] Allergies Active Allergy Reactions Criticality Noted Date [...] Department Care Team Description 06/10/2025 Results Follow-Up [facility] - HOUSE PRINCIPAL [address] [place] [address] [place] [address] Lilia Clayton APRN-SUNG 06/06/2025 2:00 PM CDT Office Visit [facility] - HOUSE PRINCIPAL [id number] [place] [address] [place] [phone] Sapphire Christian, BV (bacterial vaginosis) (Primary Dx); Well woman exam with routine gynecological exam 06/06/2025 Travel 05/16/2025 Telephone [facility] - HOUSE PRINCIPAL [address] [place] [address] [place] [address] [phone] Marleen Cummins Appointment (Appointment Request) 04/24/2025 Results Follow-Up [facility] - HOUSE PRINCIPAL [id number] [place] [address] [place] [id number] Lilia Clayton APRN-SUNG 04/22/2025 2:00 PM CDT Office Visit [facility] Medical [facility] - HOUSE PRINCIPAL [address] [facility] [address] [place] [address] Lilia Clayton APRN-CNP Vaginal discharge (Primary Dx); [...] Recorded Patient Health Questionnaire-2 Score 0 04/22/2025 [facility] of Occupat ional Health - Occupational Stress [...] place to sleep or slept in a halfway (including now)? Patient declined 05/20/2024 [place] Depression Scale Answer Date Recorded [place] Depression Scale Total 18 07/02/2024 The thought [...] any time in the past 12 m [facility], were you homeless or living in a halfway (including now)? 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 Not on file Not on file Not on file Last Filed Vital Signs Vital Sign Reading Time Taken Comments Blood Pressure 120/80 06/06/2025 2:00 PM CDT Pulse 99 06/06/2025 2:00 PM CDT Temperature 36.7 C (98.1 F) 10/11/2024 3:04 PM ADMINISTRATIVE RESIDENT Respiratory Rate 16 10/11/2024 3:04 PM ADMINISTRATIVE RESIDENT Oxygen Saturation 99% 10/11/2024 3:04 PM ADMINISTRATIVE RESIDENT Inhaled Oxygen Concentration - - Weight 68 [...] W RFLX PCR Routine 10/18/2023 2:58 PM ADMINISTRATIVE RESIDENT Encounter for supervision of other normal in first trimester PROFILE W T PALLIDUM W HIV Routine 10/18/2023 2:58 PM ADMINISTRATIVE RESIDENT Encounter for supervision of other normal in first trimester from Last 3 Months or Most Recently Relevant to Health Maintenance Results * PAP IG LB RFLX HPV APTIMA ASCU (06/06/2025 2:38 PM CDT) Diagnosis Comment [facility] INSURANCE BILL Comment:NEGATIVE FOR INTRAEP ITHELIAL LESION OR MALIGNANCY. Specimen Adequacy Comment [facility] INSURANCE BILL Comment:Satisfactory for demetrio luation. No endocervical component is identified. Clinician Provided ICD10 Comment [facility] INSURANCE BILL Comment:Z01.419 Performed by Comment [facility] INSURANCE BILL Comment:All ramirez, Energy Projects Lead (ASCP) Comment . [facility] INSURANCE BILL Note Comment [facility] INSURANCE BILL Comment: The Pap smear is a screening test designed to aid in the detection of premalignant and malignant conditions of the uterine cervix. It is not a diagnostic procedure and should not be used as the sole means of detecting cervical cancer. Both false-positive and false-negative reports do occur. [facility] CPT Code Automation Comment [facility] INSURANCE BILL Comment: This liquid based ThinPrep(R) pap test was interpreted using the Job App Plus(R) Genius(TM) Cervical Algorithm whole slide imaging system. Note Comment [facility] INSURANCE BILL Comment: The HPV DNA reflex criteria were not met with this specimen result therefore, no HPV testing was performed. Pathology/Cytolog y ENTIRE ENDOCERVIX / Unknown 06/06/2025 2:38 PM CDT 06/06/2025 Comment:End[facility] Release to p Narrative [facility] INSURANCE BILL - 06/10/2025 3:10 PM CDT [facility]formed at: [facility] [place] [id number] Psychiatric Arnp: Melodie Ulloa MD, Phone: [phone] Specimen Comment: [id number] Specimen Comment: Source.............Endocervix Specimen Comment: No. of containers..01 ThinPrep Vial us Sapphire Christian DO LAB - PATHOLOGY/CYTOLOGY ORDERAB LES Final Result Performing Organization Address [facility] Co de Phone Number [facility] INSURANCE BILL [address] [place] [address] * (ABNORMAL) MYCOPLASMA GENITAL SPECIES FIDEL PROFILE (04/22/2025 3:02 PM CDT) Mycoplasma genitalium FIDEL Negative Negative [facility] INSURANCE BILL Mycoplasma hominis FIDEL Negative Negative [facility] INSURANCE BILL Ureaplasma FIDEL Positive(A) Negative [facility] INSURANCE BILL Microbiology ENTIRE VAGINA / Unknown 04/22/2025 3:02 PM CDT 04/22/2025 Comment:[place] Narrative [facility] INSURANCE BILL - 04/24/2025 11:08 PM CDT Test(s) 361151-Lahxvbprlo hominis FIDEL; 590474-Rfqdryjdpa spp FIDEL was developed and its performance characteristics determined by [facility]. It has not been cleared or approved by the Food and Drug Administration. Performed at: - [address] [id number] Psychiatric Arnp: Allan Mcgraw MD, Phone: [phone] us Lilia Clayton WOUND/OSTOMY CLINICAL NURSE SPECIALIST-REGIONAL COORDINATOR LAB - MICROBIOLOGY ORDERA BLES Final Result Performing Organization Address [facility] Co de Phone Number [facility] INSURANCE BILL [address] [place] [address] * (ABNORMAL) VAGINITIS PLUS (BV CA CT [...] BILL - 04/24/2025 6:09 AM CDT Test(s) 967111- Atopobium vaginae; 417083- BVAB 2; 298802- Megasphaera 1 was developed and its performance characteristics determined by [facility]. It has not been cleared or approved by the Food and Drug Administration. Test(s) 151974-Ncuzxza albicans, FIDEL; 299478-Ftpaldt glabrata, FIDEL was developed and its performance characteristics determined by [facility]. It has not been cleared or approved by the Food and Drug Administration. Performed at: 01 - [address] [id number] Psychiatric Arnp: Melodie Ulloa MD, Phone: [phone] Lilia Clayton APRN-SUNG LAB - MICROBIOLOGY ORDERA BLES Final Result Performing Organization Address City/[facility]/ZIP Co de Phone Number [facility] [address] [place] [address] * HEPATITIS C ANTIBODY W RFLX PCR (10/18/2023 2:58 PM ADMINISTRATIVE RESIDENT) Hepatitis C Antibody Non Reactive Non Reactive [facility] INSURANCE BILL Blood BLOOD SPECIMEN / Unknown 10/18/2023 2:58 PM ADMINISTRATIVE RESIDENT 10/18/2023 Narrative Resulting Agency Comment Lab Testing performed at: [facility] [address] [facility] [phone] us Sapphire Christian DO LAB - CHEMISTRY ORDERABLES Final Result Performing Organization Address City/[facility]/ZIP Co de Phone Number [facility] [address] [place] [address] * PROFILE W T PALLIDUM W HIV (10/18/2023 2:58 PM ADMINISTRATIVE RESIDENT) Hepatitis B Virus Surface Antigen Negative Negative [...] BLOOD SPECIMEN / Unknown 10/18/2023 2:58 PM ADMINISTRATIVE RESIDENT 10/18/2023 Narrative Resulting Agency Comment Lab Testing performed at: [facility] [address] [facility] [id number] us Sapphire Christian DO LAB - SEROLOGY ORDERABLES Final Result [facility] INSURANCE BILL [address] [place] [address] from Last 3 Months or Most Recently Relevant to Health Maintenance [place] [address] [facility] [place] [address] [facility] [place] [address] [place] [address] [place] [facility] [place] [address] [place] [address] [place] [address] [place] [address] [place] [address] * Guarantor: ALVARO JAMES Account Type Relation [...] 4:20 PM 05/13/2024 7:57 PM Care Teams Layout Mechanic Relationship Specialty [place] [address] [facility] [address] [place], [place] [phone] Obstetrics and Gynecology 01/25/23
--- OUTSIDE RECORDS SUMMARY | 2025-06-12 01:10 | XMS_ITS | Encounter Summary ---
Author Organization [facility] Health Address [facility] [facility] [place] [address] Care Team Providers Care Business Performance Specialist Name Role Phone KatySapphire miles Abilio DO Unavailable Encounter Details Date Type Department Care Team (Late st Contact Info) Description 06/10/2025 Results Follow-Up [facility] - AUTOMOTIVE ENGINEER [address] [address] Lilia Clayton APRN-SENIOR SITE MANAGER [id number] [address] Social History Tobacco Use Types [...] Recorded Patient Health Questionnaire-2 Score 0 04/22/2025 [facility] of Occupat ional Health - Occupational Stress [...] place to sleep or slept in a fci (including now)? Patient declined 05/20/2024 [place] Depression Scale Answer Date Recorded [place] Depression Scale Total 18 07/02/2024 The thought [...] any time in the past 12 m [facility], were you homeless or living in a fci (including now)? 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
--- NOTE | 2025-06-12 01:13 | ED.FEVER ---
HPI - Fever General Chief Complaint: Fever Stated Complaint: chills, lower back pain, SHINE Time Seen by Provider: 06/12/25 00:40 History of Present Illness HPI Narrative: 24-year-old otherwise healthy female presenting to the emergency department with fever myalgias, chills, headache. 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 Has been taking Tylenol which alleviates the fever but she still having myalgias and headache. No neck stiffness or recent illnesses. No medication changes but recently did have a medically induced last month that was uneventful. No purulence or drainage or discharge at this time. No urinary complaints. Was otherwise in her normal state of health. No cough, chest tightness or shortness of breath. Related Data Allergies Allergy/AdvReac Type Severity Reaction Status Date / Time Penicillins Allergy Unknown Unknown Verified 06/11/25 23:07 peanut Allergy Unknown Verified 06/11/25 23:07 Review of Systems Review of Systems: As reviewed above in HPI [facility] Past Medical History Medical History (Updated 06/12/25 @ 01:48 by Devon Davis MD) Bronchitis Asthma Surgical History Surgical History [place] teeth removed Family History Family History Mother Diabetes mellitus Social History Social History Smoking status: Never smoker Second hand tobacco smoke exposure: No Alcohol intake: never Gender identity (if verbalized by the patient): Female Exam Narrative: GENERAL: [Well-appearing, well-nourished, and in no acute distress.] HEAD: [Normocephalic, atraumatic.] EYES: [PERRLA and EOMI.] ENT: Nares clear, no rhinorrhea or epistaxis. Mucous membranes moist. NECK: Supple. CHEST: [Clear to auscultation. No respiratory distress.] HEART: [Regular rate and rhythm]. No murmur heard. [Normal peripheral pulses.] ABDOMEN: [Soft, nondistended], [nontender], [No rigidity or guarding] EXTREMITIES: Normal range of motion. [No edema.] SKIN: Warm, dry, no rash. NEURO: [No focal deficits]. Alert and oriented [x3.] PSYCH: [Normal mood and affect.] Course Vital Signs Vital signs: Vital Signs Temperature 38.6 C H 06/11/25 23:25 Pulse Rate 100 06/11/25 23:25 Respiratory Rate 18 06/11/25 23:25 Blood Pressure 136/82 06/11/25 23:25 Pulse Oximetry 100 06/11/25 23:25 Oxygen Delivery Room Air 06/11/25 23:25 Temperature 37.2 C 06/12/25 01:58 Pulse Rate 100 06/11/25 23:25 Respiratory Rate 18 06/11/25 23:25 Blood Pressure 123/64 06/12/25 01:45 Pulse Oximetry 99 06/12/25 01:46 Oxygen Delivery Room Air 06/11/25 23:25 MDM - Fever MDM Narrative Medical decision making narrative: 24-year-old otherwise healthy female presenting to the emergency department with fever myalgias, chills, headache. 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 Has been taking Tylenol which alleviates the fever but she still having myalgias and headache. No neck stiffness or recent illnesses. No medication changes but recently did have a medically induced last month that was uneventful. No purulence or drainage or discharge at this time. No urinary complaints. Was otherwise in her normal state of health. No cough, chest tightness or shortness of breath. Patient is overall well-appearing. No tachycardia or hypoxemia. Normal blood pressure but she is febrile 38.6. Given Tylenol in triage which did bring this down to 37.3 on recheck. Vital signs remained stable. Laboratory studies ordered at this time as well as a viral panel and urine analysis and urine test. Patient given Toradol for myalgias. Mild leukocytosis, no significant anemia. Normal platelet count. Normal electrolytes. Normal renal function. Normal glucose. Normal LFTs. Negative test, urinalysis without infection markers. Safe for discharge with return precautions and follow-up instructions. Medical Records Attestation: I reviewed the patient's medical records. Lab Data Attestation: I reviewed the patient's lab results. 06/12/25 01:17 06/12/25 01:17 Labs: Lab Results 06/12/25 06/12/25 06/12/25 Range/Units 00:13 00:19 01:17 WBC 11.7 H (4.5-10.0) K/mm3 RBC 4.09 L (4.2-5.4) M/mm3 Hgb 10.9 L (12.0-15.0) g/dL Hct 33.7 L (37.0-47.0) % MCV 82.4 (80-100) fl MCH 26.7 (26-34) pg MCHC 32.3 (32-36) g/dl RDW 13.9 (11.5-14.5) % Plt Count 306 (150-375) k/mm3 MPV 9.3 (7.4-10.4) fl Immature Gran % (Auto) 0.2 (0-0.5) % Neut % (Auto) 73.7 H (45.5-73.1) % Lymph % (Auto) 14.7 L (18.3-44.2) % [place] % (Auto) 10.1 H (2.6-8.5) % Eos % (Auto) 1.1 (0-4.4) % Baso % (Auto) 0.2 (0.2-1.2) % Lymph # (Auto) 1.72 (0.9-3.2) K/mm3 [place] # (Auto) 1.2 H (0.1-0.6) K/mm3 Eos # (Auto) 0.1 (0-0.3) K/mm3 Baso # (Auto) 0.0 (0.0-0.1) K/mm3 Abs Immat Gran (auto) 0.02 (0.00-0.031) K/mm3 Absolute Neuts (auto) 8.7 H (1.3-6.7) K/mm3 Absolute Nucleated RBC 0.000 (0.0-0.012) K/mm3 Nucleated RBC % 0.0 (0.0-0.2) % Sodium 134 L (137-145) mmol/L Potassium 3.7 (3.4-5.0) mmol/L Chloride 103 (98-107) mmol/L Carbon Dioxide 23 (22-30) mmol/L Anion Gap 8 (4-12) mmol/L BUN 11 (7-17) mg/dL Creatinine 0.68 L (0.7-1.0) mg/dL Estim Creat Clear Calc 107 ml/min Estimated GFR > 60 (59 - ) Glucose 112 H (65-110) mg/dL Calcium 8.9 (8.4-10.2) mg/dL Total Bilirubin 0.3 (0.2-1.3) mg/dL AST 37 H (14-36) U/L ALT 18 (6-35) U/L Alkaline Phosphatase 97 (38-126) U/L Total Protein 8.0 (6.3-8.2) g/dL Albumin 4.5 (3.5-5.1) g/dL Urine Color Yellow (Yellow) Urine Appearance Clear (Clear) Urine pH 8.0 (5.0-9.0) Ur Specific [place] 1.016 (1.001-1.035) Urine Protein Negative (Negative) mg/dL Urine Glucose (UA) Negative (Negative) mg/dL Urine Ketones Negative (Negative) mg/dL Ur Blood (Man) Negative (Negative) Urine Nitrate Negative (Negative) Urine Bilirubin Negative (Negative) Urine Urobilinogen 1.0 (<2.0) mg/dL Leukocyte Esterase Rfl Negative (Negative) POOL/UL POC Urine HCG, Qual Negative (Negative) Urine Test Negative Influenza A (RT-PCR) Negative (Negative) Influenza B (RT-PCR) Negative (Negative) RSV (RT-PCR) Negative (Negative) SARS-CoV-2 RNA (RT-PCR) Negative (Negative) Discharge Plan Discharge Clinical Impression: Acute viral syndrome Patient Disposition: Home Condition: Stable Instructions: Antibiotic Form, Viral Syndrome (ED) Additional Instructions: Laboratory studies are largely unremarkable. Urinalysis without signs of infection. Normal kidney and liver function. No significant anemia. Symptoms consistent with viral syndrome but you did test negative for COVID and flu. Follow-up with your primary doctor about this and return with any emergent concerns. Recommendations are to take Tylenol together with ibuprofen every 4-6 hours for fever and pain control. Patient Language: Greenlandic Prescriptions: New acetaminophen [Tylenol Extra Strength] 500 mg tablet 500 mg PO Q4-6H PRN (Reason: pain) Qty: 30 0RF ibuprofen 600 mg tablet 600 mg PO TID PRN (Reason: pain) Qty: 20 0RF Follow-up/Referrals: UNKNOWN,DOCTOR [Primary Care Provider] Time of Disposition: 01:49
[2025-06-12] MEDS: KETOROLAC 15 MG/ML VIAL (*BKC) IV PUSH (01:16)
[2025-06-12 01:26] LABS: Hematocrit 33.7 % (37.0-47.0); Hemoglobin 10.9 g/dL (12.0-15.0); Immature Granulocyte Percent A 0.2 % (0-0.5); Lymphocytes Absolute Auto 1.72 K/mm3 (0.9-3.2); Mean Corpuscular HGB Conc 32.3 g/dl (32-36); Mean Corpuscular Hemoglobin 26.7 pg (26-34); Mean Corpuscular Volume 82.4 fl (80-100); Nucleated Red Blood Cells Absolute Auto 0.000 K/mm3 (0.0-0.012); Nucleated Red Blood Cells Perc 0.0 % (0.0-0.2); Platelet Count Result 306 k/mm3 (150-375); Red Blood Count 4.09 M/mm3 (4.2-5.4); White Blood Count 11.7 K/mm3 (4.5-10.0)
[2025-06-12 01:41] LABS: Alanine Aminotransferase 18 U/L (6-35); Albumin Level 4.5 g/dL (3.5-5.1); Alkaline Phosphatase 97 U/L (38-126); Anion Gap 8 mmol/L (4-12); Aspartate Amino Transferase 37 U/L (14-36); Bilirubin,Total 0.3 mg/dL (0.2-1.3); Blood Urea Nitrogen 11 mg/dL (7-17); Calcium 8.9 mg/dL (8.4-10.2); Carbon Dioxide 23 mmol/L (22-30); Chloride 103 mmol/L (98-107); Estimated CRCL calculation 107 ml/min; Estimated Glomerular Filt Rate > 60; Glucose 112 mg/dL (65-110); Potassium 3.7 mmol/L (3.4-5.0); Sodium 134 mmol/L (137-145); Total Protein 8.0 g/dL (6.3-8.2)
== END 2025-06-12 02:05 | disposition home or self-care (01) ==
PROVIDERS: Emergency Provider Student in an Organized Health Care Education/Training Program
DX: B34.9 Viral infection, unspecified (principal); Z20.822 Contact with and (suspected) exposure to COVID-19
CPT/HCPCS: 36415; 80053; 81003; 81025; 85025; 87637; 96374; 99284; A9270; J1885

== ENCOUNTER 2025-06-14 14:02 | Emergency (ER) | payer OTHER, SELFPAY ==
[2025-06-14 14:15] VITALS: BP 129/89; PULSE 112; RESP 16; TEMP 37.1; O2SAT 100
[2025-06-14 14:26] LABS: EDSTREPNEGPOS1 Positive (Negative)
--- NOTE | 2025-06-14 14:29 | ED_ITS ---
HPI - URI/Sore Throat General Chief Complaint: Upper Respiratory Infection Stated Complaint: SORE THROAT Time Seen by Provider: 06/14/25 14:21 Source: patient and RN notes reviewed Mode of arrival: ambulatory Limitations: no limitations History of Present Illness HPI Narrative: 24-year-old female patient presents today with a 3 day history of body aches, sore throat, chills. She currently rates her pain 6/10 and has been taking Tylenol and ibuprofen with mild improvement. Two days ago patient was seen in the ER for same symptoms and had a workup with blood work, COVID and influenza testing. Testing was grossly negative. She did not have strep test and would like 1 today. Related Data Allergies Allergy/AdvReac Type Severity Reaction Status Date / Time Penicillins Allergy Unknown Unknown Verified 06/14/25 14:16 peanut Allergy Unknown Verified 06/14/25 14:16 [facility] Past Medical History Medical History (Updated 06/14/25 @ 14:35 by Radha Roman APRN, TINO) Bronchitis Asthma Surgical History Surgical History [place] teeth removed Family History Family History Mother Diabetes mellitus Social History Social History Smoking status: Never smoker Second hand tobacco smoke exposure: No Alcohol intake: never Gender identity (if verbalized by the patient): Female Comments At time of signature, I have reviewed and agree with nursing past medical, surgical, social and family history unless otherwise noted. Please see nursing chart for further information. There is no relevant family history pertinent to the presenting complaint Exam Narrative: GENERAL: Well-appearing, well-nourished, and in no acute distress. HEAD: Normocephalic, atraumatic. EYES: EOMI. No redness or drainage. Conjunctivae normal. ENT: Mucous membranes pink and moist. Nares clear. No rhinorrhea. TMs normal bilaterally. Throat erythematous and edematous without exudate. Uvula midline. NECK: Normal AROM. Supple. No lymphadenopathy. CHEST: No respiratory distress. Clear to auscultation. HEART: Regular rhythm. No murmur appreciated. + tachycardia EXTREMITIES: Normal range of motion. No edema. SKIN: Warm, dry, no rash. Capillary refill normal. Normal skin turgor. NEURO: No focal deficits. Alert and oriented x3. Gait steady. PSYCH: Normal affect. No signs of depression or anxiety. Course Course Level of Care: Express Care Visit Vital Signs Vital signs: Vital Signs Temperature 98.7 F 06/14/25 14:15 Pulse Rate 112 H 06/14/25 14:15 Respiratory Rate 16 06/14/25 14:15 Blood Pressure 129/89 06/14/25 14:15 Pulse Oximetry 100 06/14/25 14:15 Temperature 98.7 F 06/14/25 14:15 Pulse Rate 112 H 06/14/25 14:15 Respiratory Rate 16 06/14/25 14:15 Blood Pressure 129/89 06/14/25 14:15 Pulse Oximetry 100 06/14/25 14:15 Reviewed MDM - URI/Sore Throat MDM Narrative Medical decision making narrative: 24-year-old female patient presents today with a 3 day history of body aches, sore throat, chills. She currently rates her pain 6/10 and has been taking Tylenol and ibuprofen with mild improvement. Two days ago patient was seen in the ER for same symptoms and had a workup with blood work, COVID and influenza testing. Testing was grossly negative. She did not have strep test and would like 1 today. Upon exam, patient has erythematous and edematous throat. Rapid strep positive. Prescription for Keflex sent to pharmacy. Patient also requesting vaginal swab for yeast due to some itching. As she is getting ready to start a course of antibiotics, recommend prescribing some fluconazole to take which she has finished instead. Patient agrees with plan. Vital signs stable. Anticipatory guidance given. Differential Diagnosis Differential diagnosis: Likely upper respiratory infection, viral infection, pharyngitis and other (Strep throat) Lab Data Attestation: I reviewed the patient's lab results. Labs: Lab Results 06/14/25 Range/Units 14:13 POC Grp A Strep Screen Positive (Negative) Critical Care Time Critical Care Time Critical Care Time: No Discharge Plan Discharge Clinical Impression: Strep throat Patient Disposition: Home Condition: Stable Instructions: Antibiotic Form, Strep Throat (DC) Additional Instructions: You tested positive for strep throat. Please take the Keflex as prescribed until gone. You will be contagious for 24 hours after starting the medication. Take Tylenol or Ibuprofen for pain or fever, if able. Rest and stay hydrated. Follow up with your PCP in 3 days if symptoms are not improving. Go to the ER immediately if [] develops worsening symptoms such as shortness of breath, difficulty swallowing. Patient Language: Chinese Prescriptions: New cephalexin 500 mg capsule 500 mg PO BID 10 Days Qty: 20 0RF No Action acetaminophen [Tylenol Extra Strength] 500 mg tablet 500 mg PO Q4-6H PRN (Reason: pain) Qty: 30 0RF ibuprofen 600 mg tablet 600 mg PO TID PRN (Reason: pain) Qty: 20 0RF Follow-up/Referrals: PHYSICIAN,SURVEILLANCE CAMERA TECHNICIAN [Primary Care Provider, Internal Medicine] Stand Alone Forms: Work/School Release IP Time of Disposition: 14:35
== END 2025-06-14 14:49 | disposition home or self-care (01) ==
PROVIDERS: Emergency Provider Nurse Practitioner
DX: J02.0 Streptococcal pharyngitis (principal); J45.909 Unspecified asthma, uncomplicated
CPT/HCPCS: 87880; 99213; G0463

== ENCOUNTER 2025-07-31 13:36 | Emergency (ER) | payer OTHER, MEDICAID, SELFPAY ==
--- NOTE | 2025-07-31 13:57 | ED_ITS ---
HPI - URI/Sore Throat General Chief Complaint: Upper Respiratory Infection Stated Complaint: strep testing Time Seen by Provider: 07/31/25 13:37 Source: patient Mode of arrival: ambulatory Limitations: no limitations History of Present Illness HPI Narrative: Patient is a 24-year-old female who presents with sore throat since yesterday. Daughter and significant other her positive for strep throat. Denies any fever, chills, nausea, vomiting, diarrhea, congestion, cough. Related Data Allergies Allergy/AdvReac Type Severity Reaction Status Date / Time Penicillins Allergy Unknown Unknown Verified 07/31/25 14:04 peanut Allergy Unknown Verified 07/31/25 14:04 Review of Systems Review of Systems: All systems reviewed & are unremarkable except as noted in HPI and below Constitutional: Constitutional: Denies body ache(s), Denies fever(s), Denies headache(s), Denies malaise and Denies weakness Eyes: Eyes: Denies loss of vision ENT: Denies otalgia, Denies headache(s), Denies nasal congestion, Denies sinus pain and Reports sore throat Cardiovascular: Cardiovascular: Denies chest pain, Denies irregular heart rhythm and Denies dyspnea Respiratory: Respiratory: Denies cough and Denies dyspnea Gastrointestinal: Gastrointestinal: Denies abdominal pain, Denies melena, Denies hematochezia, Denies diarrhea, Denies nausea and Denies vomiting Musculoskeletal: Musculoskeletal: Denies back pain, Denies myalgias and Denies arthralgias Integumentary/Breasts: Skin/Breast: Denies pruritus and Denies rash Neurologic: Denies headache(s), Denies loss of vision and Denies weakness Psychiatric: Psychiatric: Reports no additional psychiatric complaints PMF Past Medical History Medical History Bronchitis Asthma Surgical History Surgical History [place] teeth removed Family History Family History Mother Diabetes mellitus Social History Social History Smoking status: Never smoker Second hand tobacco smoke exposure: No Alcohol intake: never Gender identity (if verbalized by the patient): Female Comments At time of signature, agree with nursing past medical, surgical, social and family history. There is no relevant family history pertinent to the presenting complaint. Exam Const: General: cooperative, healthy appearing, comfortable, no acute distress and well nourished Nutritional Appearance: well nourished Orientation/consciousness: patient oriented x3 Limitations: no limitations HENMT: Head: normal to inspection, normocephalic and atraumatic Ears: hearing grossly normal bilaterally, external ears normal, TM's normal bilaterally and EAC's normal Face/Nose/Sinus: Normal external nose present, Normal nares present, Normal nasal mucous membranes and turbinates present, Normal septum present, normal facial exam, sinuses nontender and face symmetric Face and sinus: normal facial exam, sinuses nontender and face symmetric Mouth: Yes Normal oral and palatal mucosa present, Yes lip normal and Yes moist mucous membranes Teeth and gingiva: dentition normal Throat: uvula midline, abnormal tonsil bilateral erythema and hypertrophy 2+ and posterior oropharynx abnormal erythema Eyes: General: appearance normal, both eyes and all related structures Alignment and Position: alignment normal and position normal Periorbital: periorbital findings normal Eyelids: eyelids normal Pupils: Equal, round and reactive pupils present Neck: Neck: normal visual inspection, full ROM, no lymphadenopathy and supple Chest: Chest palpation & inspection: normal inspection of the chest and normal palpation of entire chest wall Resp: Effort & Inspection: normal respiratory effort and able to speak in complete sentences Auscultation: clear to auscultation bilaterally, no crackles, no rales, no rhonchi and no wheezes Cardio: Rate: regular rate Rhythm: regular rhythm Heart sounds: S1 normal heart sound present and S2 normal heart sound present GI: Inspection: normal to inspection Skin: General skin exam: normal color and no rashes or lesions noted Neuro: General: patient oriented x3 and moves all extremities Cranial nerves: Yes Equal, round and reactive pupils present Speech: normal speech Gait exam (Neuro): Normal gait present Extrem: General: normal to inspection, full ROM and no edema Psych: Appearance: grossly normal and well kempt Mental Status: mental status grossly normal Speech and movement: Normal speech and movement present Affect: normal affect Attitude: cooperative Thought process: Normal thought process present Course Course Emergency Course: Patient is aware of diagnosis, understands and agrees to treatment plan. Anticipatory guidance given. Patient agrees to follow-up as directed and is aware of reasons to seek care at the emergency department. Portions of this record may have been created with voice recognition software Level of Care: Express Care Visit Vital Signs Vital signs: Vital Signs Temperature 36.4 C L 07/31/25 13:59 Pulse Rate 74 07/31/25 13:59 Respiratory Rate 16 07/31/25 13:59 Blood Pressure 121/76 07/31/25 13:59 Pulse Oximetry 100 07/31/25 13:59 Temperature 36.4 C L 07/31/25 13:59 Pulse Rate 74 07/31/25 13:59 Respiratory Rate 16 07/31/25 13:59 Blood Pressure 121/76 07/31/25 13:59 Pulse Oximetry 100 07/31/25 13:59 [facility] Narrative Medical decision making narrative: Patient positive for strep throat. Will treat with antibiotics. Education provided to limit reexposure Patient well hydrated appearing, in no respiratory distress, hemodynamically stable. Recommend supportive care. The patient is stable at time of discharge the clinical impression was discussed and the patient was given the opportunity to ask questions, which were addressed as completely as possible given the information available at present. Anticipatory guidance and return to care precautions were discussed and the importance of primary care follow-up was stressed and encouraged. The patient voiced understanding of the plan, indications to return, and the need for follow-up. Exam findings show no acute concerns or changes Patient is appropriate for outpatient treatment and follow-up. Differential Diagnosis Differential Diagnosis: Differential diagnosis considered: Jo virus, strep pharyngitis, allergic rhinitis, upper respiratory tract infection, sinusitis, rhinosinusitis, nasopharyngitis. viral pharyngitis, otitis media, otitis externa, otitis effusion, foreign body, cerumen impaction, viral syndrome, and influenza.? Medical Records I have reviewed the following patient records and this information was taken into consideration when formulating the assessment and plan.: previous clinic visits Lab Data [facility] Lab Attestation statement: I personally reviewed the patient's lab results. Labs: Lab Results 07/31/25 Range/Units 14:02 POC Grp A Strep Screen Positive (Negative) Discharge Plan Discharge Clinical Impression: Strep throat Patient Disposition: Home Condition: Stable Instructions: Strep Throat (ED) Additional Instructions: Your rapid strep swab was positive today at [facility]. After 24 hours on antibiotics throw tooth brush away and start using a new one. Wash your sheets and cup/water bottle that is used daily. Do not share drinks. Take Motrin alternating with Tylenol for pain and fever alternating every 3 alberto rs. 8 AM: Tylenol 11 AM: Ibuprofen 2 PM: Tylenol 5 PM: Ibuprofen 8 PM: Tylenol 11 PM: Ibuprofen 2 AM: Tylenol 5 AM: Ibuprofen Increase fluids, avoid caffeine. Other symptomatic treatments include: -Antihistamine medication such as Benadryl at night and Zyrtec/Claritin/Carole during the day can help improve symptoms. -Use Flonase twice a day for 5 days then daily to help reduce the inflammation and dry up your sinuses. -You can also use Sudafed or Mucinex. Be sure to drink plenty of water with these medications at least 8 ounces with every dose and it is important to drink 8 to 10 glasses of water per day. Water is a natural decongestant -Eat and drink things that are easy to swallow, like tea or soup, or popsicles. -Oral rinses such as: Salt water gargles and/or may use topical anesthetic (eg. Chloraseptic spray) or lozenges to relieve dryness or throat pain). -Frequent hand washing or hand lime kiln worker is one of the best ways to prevent spread of infection. -Using a vaporizer or humidifier at night will also help thin secretions and help with coughing up phlegm. -Follow up with primary care provider in 3-5 days if condition is not improving - For new or worsening symptoms go directly to the nearest ER Patient Language: Lao Prescriptions: New amoxicillin 500 mg capsule 500 mg PO BID 10 Days Qty: 20 0RF Follow-up/Referrals: Dakota Garcia MD [Physician, Family Practice] - 3 Days Stand Alone Forms: Work/School Release IP Time of Disposition: 14:34
[2025-07-31 13:59] VITALS: BP 121/76; PULSE 74; RESP 16; TEMP 36.4; O2SAT 100
[2025-07-31 14:05] LABS: EDSTREPNEGPOS1 Positive (Negative)
== END 2025-07-31 14:45 | disposition home or self-care (01) ==
PROVIDERS: Emergency Provider Nurse Practitioner Family
DX: J02.0 Streptococcal pharyngitis (principal); J45.909 Unspecified asthma, uncomplicated
CPT/HCPCS: 87880; 99213; G0463

== ENCOUNTER 2025-08-12 08:50 | Emergency (ER) | payer OTHER, MEDICAID, SELFPAY ==
[2025-08-12 09:06] VITALS: BP 108/78; PULSE 98; RESP 16; TEMP 36.8; O2SAT 100
[2025-08-12 09:26] LABS: EDCOVIDSCREEN Negative (Negative); EDINFLUASCREEN Negative (Negative); EDINFLUBSCREEN Negative (Negative)
--- NOTE | 2025-08-12 09:38 | ED.URI ---
HPI - URI/Sore Throat General Chief Complaint: Upper Respiratory Infection Stated Complaint: Flu Symptoms Time Seen by Provider: 08/12/25 09:15 Source: patient and RN notes reviewed Mode of arrival: ambulatory Limitations: no limitations History of Present Illness HPI Narrative: 24-year-old female presents to the [facility] complaining of upper respiratory symptoms for approximately 8-9 days. Patient reports cough, congestion, runny nose, mucopurulent nasal drainage, sinus pressure. Patient recently treated for strep throat. Patient says symptoms are not getting better. Patient has been doing [id number] cold and flu medication use an albuterol inhaler without any relief. Patient denies any chest pain, nausea vomiting, diarrhea, difficulty breathing, any other symptoms. Patient reports history of asthma. Related Data Allergies Allergy/AdvReac Type Severity Reaction Status Date / Time Penicillins Allergy Unknown Unknown Verified 08/12/25 09:17 peanut Allergy Unknown Verified 08/12/25 09:17 Review of Systems Review of Systems: CONSTITUTIONAL: Denies fever, chills, or sweats. EYES: Denies visual changes, redness, or discharge. ENT: Denies rhinorrhea, sore throat, or otalgia. Positive for congestion, sinus pressure, nasal drainage. CARDIOVASCULAR: Denies chest pain, palpitations, or edema. RESPIRATORY: Positive for cough. Negative for wheezing Or dyspnea. GASTROINTESTINAL: Denies abdominal pain, nausea, vomiting, or diarrhea. GENITOURINARY: Denies dysuria or hematuria. SKIN: Denies rash or itching. MUSCULOSKELETAL: Denies back pain, joint pain, or myalgia. NEUROLOGIC: Denies headache, numbness, or weakness. PSYCHIATRIC: Denies anxiety or depression. All other systems reviewed are negative, except as documented in HPI. [facility] Past Medical History Medical History Bronchitis Asthma Surgical History Surgical History [place] teeth removed Family History Family History Mother Diabetes mellitus Social History Social History Smoking status: Never smoker Second hand tobacco smoke exposure: No Alcohol intake: never Gender identity (if verbalized by the patient): Female Comments At the time of my signature, I reviewed and agree with the nursing past medical, surgical, social, and family history. There is no relevant family history pertinent to the patient complaint. Exam Narrative: GENERAL: This is a well-nourished, well-developed adult, in no apparent distress. They are non ill-appearing, nontoxic appearing. HEAD: normocephalic, atraumatic. EYES: Sclera clear/white. Conjunctiva normal. Vision is grossly intact. Extraocular movements intact EARS: External ears normal, auditory canals clear and without drainage, TMs normal without perforation. Hearing grossly intact. NOSE: External nose normal with no obvious nasal discharge, nasal turbinates erythematous, no rhinorrhea. THROAT: Mucous membranes moist, posterior pharynx erythematous with PND Uvula midline. NECK: Neck supple, non-tender without lymphadenopathy, masses or thyromegaly. CARDIOVASCULAR: Regular rate and rhythm without murmurs, gallops, or rubs. RESPIRATORY: Clear to auscultation. Breath sounds equal bilaterally. No wheezes, rales, or rhonchi. SKIN: warm, Dry, intact with no suspicious lesions or rash, good texture and turgor. NEURO: awake, alert, and oriented to person, place and time. There were no obvious focal neurologic abnormalities. EXTREMITIES: No joint tenderness, effusion, or edema noted. BACK: Nontender without deformity. Course Course Level of Care: Express Care Visit Vital Signs Vital signs: Vital Signs Temperature 98.2 F 08/12/25 09:06 Pulse Rate 98 08/12/25 09:06 Respiratory Rate 16 08/12/25 09:06 Blood Pressure 108/78 08/12/25 09:06 Pulse Oximetry 100 08/12/25 09:06 Temperature 98.2 F 08/12/25 09:06 Pulse Rate 98 08/12/25 09:06 Respiratory Rate 16 08/12/25 09:06 Blood Pressure 108/78 08/12/25 09:06 Pulse Oximetry 100 08/12/25 09:06 [facility] Narrative Medical decision making narrative: Rapid COVID and flu were negative. Given length of symptoms patient likely has bacterial sinusitis. Patient has allergy to penicillins. Will treat her with doxycycline. Discussed physical exam findings. Advised supportive measures and signs/symptoms to go to the ER. Pt is appropriate for outpt treatment and f/u. Differential Diagnosis Differential Diagnosis: Differential diagnostic considerations for upper respiratory infection include upper respiratory infection, croup, otitis media, sinusitis, viral infection, bronchitis, influenza, pharyngitis, strep, uvulitis. Lab Data [facility] Lab Attestation statement: I personally reviewed the patient's lab results. Labs: Lab Results 08/12/25 Range/Units 08:58 POC Influenza A Ag Negative (Negative) POC Influenza B Ag Negative (Negative) POC SARS CoV-2 Ag Negative (Negative) Critical Care Time Critical Care Time Critical Care Time: No Discharge Plan Discharge Clinical Impression: Sinusitis Qualifiers: Sinusitis location: unspecified location Chronicity: acute Recurrence: non-recurrent Qualified Code(s): J01.90 - Acute sinusitis, unspecified Patient Disposition: Home Condition: Stable Instructions: Antibiotic Form, Sinusitis (ED) Additional Instructions: Take the antibiotics as directed and complete the course even if you start to feel better. You may use a Neti pot saline rinse 3 times a day with lukewarm distilled water Continue to take Tylenol or Motrin as needed for pain or fevers or Use a humidifier or vaporizer at night. Drink plenty of water. 8-10 glasses per day. Use flonase 2 times per day for 5 days then as needed Take mucinex 2 times per day and be sure to take with 8oz of water. Follow up with Primary provider in 3-5 days Please go to the ER if he develops any difficulty breathing, chest pain, vomiting, worsening symptoms, or any other concerns Patient Language: Panamanian Prescriptions: New doxycycline monohydrate 100 mg capsule 100 mg PO BID 7 Days Qty: 14 0RF Follow-up/Referrals: UNKNOWN,DOCTOR [Primary Care Provider] Stand Alone Forms: Work/School Release IP Time of Disposition: 09:31
== END 2025-08-12 09:34 | disposition home or self-care (01) ==
DX: J01.90 Acute sinusitis, unspecified (principal); Z20.822 Contact with and (suspected) exposure to COVID-19
CPT/HCPCS: 87426; 87804; 99213; G0463